=== PATIENT | female | born 1985 | race Caucasian/White ===

== ENCOUNTER 2025-03-16 17:26 | Emergency (ER) | payer OTHER, SELFPAY ==
--- OUTSIDE RECORDS SUMMARY | 2025-03-12 09:16 | XMS_ITS | Encounter Summary ---
Author Organization [facility] tem Address [id number] [address] [place] [address] Care Team Providers Care Supervisor [employer] Name Role Phone Emelia oRd APRN-LINEN MANAGER Primary Care Provide r Reason for Visit * Reason Comments Vomiting Diarrhea Encounter Details Date Type Department Care Team (Late st Contact Info) Description 03/12/2025 9:16 AM EDT - 03/12/2025 11:30 AM EDT Emergency [facility] - Emergency [address] [place] [id number] Marcial Redding MD [address] [place] [address] Cyclical vomiting (Primary Dx) Discharge Disposition: Home Social History Tobacco Use Types Packs/Day Years Used Date Smoking Tobacco: Every Day Cigarettes 0.3 19 Smokeless Tobacco: Never Alcohol Use Standard Drinks/Week Comments Yes 0 (1 standard drink = 0.6 oz pur e alcohol) SOCIAL PHQ-2 Answer Date Recorded Total Score 0 01/20/2023 Childcare Answer Date Recorded Childcare Unknown 01/07/2019 Employment Answer Date Recorded Employment Unknown 01/07/2019 Hunger Screening Answer Date Recorded Within the past 12 months we worried whether our food would run out before we got money to buy more. Never True 03/13/2025 Within the past 12 months th e food we bought just didn't last and we didn't have money to get more. Never True 03/13/2025 Purpose - Life Answer Date Recorded Purpose and direction in life Unknown Comments No Sex and Gender Information Value Date Recorded Sex Assigned at Not on file Legal Sex Female 11:39 AM EDT Gender Identity Not on file Sexual Orientation Not on file documented as of this encounter Last Filed Vital Signs Vital Sign Reading Time Taken Comments Blood Pressure 130/65 03/12/2025 10:45 AM EDT Pulse 43 03/12/2025 10:45 AM EDT Temperature - - Respiratory Rate 19 03/12/2025 10:45 AM EDT Oxygen Saturation 100% 03/12/2025 10:45 AM EDT Inhaled Oxygen Concentration - - Weight 48.1 kg (106 lb) 03/12/2025 9:21 AM EDT Height 144.8 cm (4' 9 ) 03/12/2025 9:21 AM EDT Body Mass Index 22.94 03/12/2025 9:21 AM EDT documented in this encounter Discharge Instructions * Attachments The following attachments cannot be sent through Care Everywhere. * Nausea and vomiting in adults (Latvian) documented in this encounter Medications at Time of Discharge acetaminophen (TYLENOL EXTRA STRENGTH) 500 mg tablet Take 1 tablet (500 mg total) by mouth every 6 (six) hours as needed for pain. 30 tablet 10/16/2023 albuterol (PROVENTIL HFA;VENTOLIN HFA) 90 mcg/actuation inhalerIndications: Asthma, unspecified asthma severity, unspecified whether complicated, unspecified whether persistent INHALE 2 PUFFS EVERY 6 HOURS NEEDED FOR WHEEZING 18 g 11 07/25/2024 diphenhydrAMINE (BENADRYL) 25 mg capsule Take 1 capsule (25 mg total) by mouth every 6 (six) hours as needed for itching for up to 10 doses. 10 capsule 12/07/2022 EPINEPHrine (EPIPEN) 0.3 mg/0.3 mL auto-injector Inject 0.3 mL (0.3 mg total) into the appropriate muscle as needed (Anaphylaxis) for up to 1 dose. 1 each 12/07/2022 famotidine (PEPCID) 20 mg tablet Take 1 tablet (20 mg total) by mouth in the morning and 1 tablet (20 mg total) before bedtime. 20 tablet 01/20/2023 hydrocortisone (ANUSOL-HC) 2.5 % rectal creamIndications:He morrhoids, unspecified hemorrhoid type Insert 1 Application into the rectum in the morning and 1 Application before bedtime. 30 g 1 09/08/2023 ibuprofen (MOTRIN) 600 mg tablet Take 1 tablet (600 mg total) by mouth every 6 (six) hours as needed for pain. 30 tablet 10/16/2023 lidocaine (XYLOCAINE) 2 % jellyIndications:He morrhoids, unspecified hemorrhoid type Apply 1 Application topically as needed for pain. 30 mL 06/01/2023 ondansetron ODT (ZOFRAN ODT) 4 mg disintegrating tablet Dissolve 1 tablet (4 mg total) on tongue every 8 (eight) hours as needed for nausea for up to 20 doses. 20 tablet 07/08/2023 promethazine (PHENERGAN) 25 mg suppository Insert 1 suppository (25 mg total) into the rectum every 6 (six) hours as needed for nausea or vomiting. 12 each 01/20/2023 documented as of this encounter ED Notes * Marcial Redding MD - 03/12/2025 9:24 AM EDT Images from the original note were not included. [facility] - EMERGENCY Pt Name: Bernie Meza Birthdate: 1985 Chief Complaint: Chief Complaint Patient presents with ??? Vomiting ??? Diarrhea History of Present Illness: Patient has a history of cyclical vomiting syndrome. It has been awhile since she has had an episode like this. She states about 730 this morning she became nauseous and then started vomiting intractably. She is also now having diarrhea. No focal abdominal pain. Past Medical History: Past Medical History: Diagnosis Date ??? Anemia ??? Anxiety ??? Asthma ??? Back pain ??? Depression ??? Eczema ??? Endometriosis ??? Hemorrhoids ??? History of obesity ??? Hypertension Patient states she has a history of low blood pressure not high ??? Meningitis ??? Migraine ??? Rectal cancer ([facility]) ??? Sacroiliac joint pain with Pressure ??? Visual impairment Past Surgical History: Past Surgical History: Procedure Laterality Date ??? COLONOSCOPY 2019 [place] ??? COLONOSCOPY W/ BIOPSIES AND POLYPECTOMY x4 ??? DENTAL SURGERY ??? HYSTERECTOMY ??? OVARIAN CYST REMOVAL Family History: Family History Problem Relation Age of Onset ??? Hypertension Mother ??? Osteoporosis Mother ??? Emphysema Father ??? Asthma Father ??? COPD Father ??? Osteoporosis Sister ??? Diabetes Maternal Aunt ??? Cancer Maternal Aunt ??? Colon cancer Maternal Aunt ??? Heart failure Maternal Grandmother ??? Cancer Maternal Grandfather ??? Brain Tumor Maternal Grandfather Social History: Social History Socioeconomic History ??? Marital status: Tobacco Use ??? Smoking status: Every Day Current packs/day: 0.25 Average packs/day: 0.3 packs/day for 19.0 years (4.8 ttl pk-yrs) Types: Cigarettes ??? Smokeless tobacco: Never Vaping Use ??? Vaping status: Some Days ??? Substances: THC Substance and Sexual Activity ??? Alcohol use: Yes Comment: SOCIAL ??? Drug use: Yes Types: Marijuana Comment: daily ??? Sexual activity: Yes Partners: Male Social Drivers of Health Food Insecurity: No Food Insecurity (10/16/2023) Hunger Screening ??? Food Insecurity - Worry: Never True ??? Food Insecurity - Inability: Never True Review of Systems: Review of Systems Physical Exam: ED Triage Vitals Temp Pulse Resp BP SpO2 -- -- -- -- -- Temp src Heart Rate Source Patient Position BP Location FiO2 (%) -- -- -- -- -- There were no vitals filed for this visit. Physical Exam Vitals and nursing note reviewed. Constitutional: Appearance: She is well-developed. HENT: Head: Normocephalic and atraumatic. Eyes: Conjunctiva/sclera: Conjunctivae normal. Pupils: Pupils are equal, round, and reactive to light. Cardiovascular: Rate and Rhythm: Regular rhythm. Tachycardia present. Heart sounds: Normal heart sounds. Pulmonary: Effort: Pulmonary effort is normal. Breath sounds: Normal breath sounds. Abdominal: Palpations: Abdomen is soft. Tenderness: There is no abdominal tenderness. Musculoskeletal: General: Normal range of motion. Cervical back: Normal range of motion and neck supple. Skin: General: Skin is warm and dry. Findings: No rash. Neurological: Mental Status: She is alert and oriented to person, place, and time. Psychiatric: Behavior: Behavior normal. Procedure: Procedures Re-evaluation: Re-Evaluation Medical Decision Making Amount and/or Complexity of Data Reviewed Labs: ordered. Risk Prescription drug management. ED Course: Clinical Impressions as of 03/12/25 1022 Cyclical vomiting . ED Disposition None . Please note that portions of this note were completed with a voice recognition program. Efforts were made to edit the dictations but occasionally words are mis-transcribed. Marcial Redding MD 03/12/25 0925 * Cristiane Garcia RN - 03/12/2025 9:20 AM EDT Pt presents with vomiting since 0600 this am documented in this encounter Plan of Treatment Not on file documented as of this encounter Procedures Procedure Name Priority Date/Time Associated Diagnosis Comments BLUE TOP Routine 03/12/2025 9:36 AM EDT RAINBOW DRAW Routine 03/12/2025 9:36 AM EDT CBC WITH AUTO DIFFERENTIAL STAT 03/12/2025 9:35 AM EDT LIPASE STAT 03/12/2025 9:35 AM EDT ETHANOL STAT 03/12/2025 9:35 AM EDT COMPREHENSIVE METABOLIC PANEL STAT 03/12/2025 9:35 AM EDT documented in this encounter Results * Light Blue Top (03/12/2025 9:36 AM EDT) Extra Tube Auto Resulted 03/12/2025 11:01 AM EDT [facility] Blood Venous blood / Unknown 03/12/2025 9:36 AM EDT 03/12/2025 9:39 AM EDT us Marcial Redding MD LAB BLOOD ORDERABLES Final Resu lt Performing Organization Address City/[facility]/ZIP Co de Phone Number [address] [place] [address], [place] * Lipase (03/12/2025 9:35 AM EDT) LIPASE 28 17 - 40 U/L 03/12/2025 10:04 AM EDT [facility] Blood Venous blood / Unknown 03/12/2025 9:35 AM EDT 03/12/2025 9:39 AM EDT us Marcial Redding MD LAB BLOOD ORDERABLES Final Resu lt Performing Organization Address [facility] Co de Phone Number [address] [place] [address], [place] * Ethanol (03/12/2025 9:35 AM EDT) ETHANOL <0.010 <=0.080 g/dL 03/12/2025 10:06 AM EDT [facility] Comment: This report is intended for use in clinical monitoring or management of patients. Blood Venous blood / Unknown 03/12/2025 9:35 AM EDT 03/12/2025 9:39 AM EDT us Marcial Redding MD LAB BLOOD ORDERABLES Final Resu lt Performing Organization Address [facility] Co de Phone Number [address] [place] [address], [place] * (ABNORMAL) Comprehensive metabolic panel (03/12/2025 9:35 AM EDT) SODIUM 139 134 - 146 mmol/L 03/12/2025 10:06 AM EDT [facility] POTASSIUM 4.0 3.5 - 5.0 mmol/L 03/12/2025 10:06 AM EDT [facility] CHLORIDE 111(H) 98 - 109 mmol/L 03/12/2025 10:06 AM EDT [facility] CARBON DIOXIDE 19(L) 22 - 32 mmol/L 03/12/2025 10:06 AM EDT [facility] ANION GAP 9 5 - 15 mmol/L 03/12/2025 10:06 AM T [facility] BLOOD UREA NITROGEN 24(H) 5 - 23 mg/dL 03/12/2025 10:06 AM EDT [facility] CREATININE 0.72 0.40 - 1.00 mg/dL 03/12/2025 10:06 AM T [facility] Comment:METHOD TRACEABLE TO IDAZ STANDARD GLUCOSE 144(H) 65 - 99 mg/dL 03/12/2025 10:06 AM T [facility] CALCIUM 8.9 8.5 - 10.5 mg/dL 03/12/2025 10:06 AM T [facility] TOTAL PROTEIN 7.1 6.0 - 8.0 g/dL 03/12/2025 10:06 AM T [facility] ALBUMIN 4.2 3.2 - 5.3 g/dL 03/12/2025 10:06 AM T [facility] ALKALINE PHOSPHATASE 51 39 - 130 U/L 03/12/2025 10:06 AM T [facility] AST 20 <=41 U/L 03/12/2025 10:06 AM T [facility] ALT 15 <=31 U/L 03/12/2025 10:06 AM T [facility] BILIRUBIN,TOTAL 0.7 0.3 - 1.2 mg/dL 03/12/2025 10:06 AM [facility] EGFR Non-Race Dependent >90 >=60 ml/min/1.7 3sq.m 03/12/2025 10:06 AM [facility] Comment: eGFR not reported due to non-numeric value for Creatinine. Reported eGFR is based on the CKD-EPI 2020 equation that does not use a race coefficient. Blood Venous blood / Unknown 03/12/2025 9:35 AM EDT 03/12/2025 9:39 AM EDT us Marcial Redding MD LAB BLOOD ORDERABLES Final Resu lt [facility] [address] [place] [address], [place] * (ABNORMAL) CBC auto differential (03/12/2025 9:35 AM EDT) WBC 10.3 4 - 11 x10E9/L 03/12/2025 9:59 AM EDT [facility] RBC Count 4.13 3.8 - 5.2 X10E12/L 03/12/2025 9:59 AM EDT [facility] Hemoglobin 13.5 11.7 - 15.5 g/dL 03/12/2025 9:59 AM EDT [facility] Hematocrit 39.8 35 - 47 % 03/12/2025 9:59 AM EDT [facility] MCV 97 80 - 100 fL 03/12/2025 9:59 AM EDT [facility] MCH 32.7 27 - 34 pg 03/12/2025 9:59 AM EDT [facility] MCHC 33.8 32 - 36 g/dL 03/12/2025 9:59 AM EDT [facility] RDW 13.0 11.5 - 15 % 03/12/2025 9:59 AM EDT [facility] Platelet Count 376 150 - 450 X10E9/L 03/12/2025 9:59 AM EDT [facility] MPV 8.1 7 - 12 fL 03/12/2025 9:59 AM EDT [facility] Neutrophils % 67.8 % 03/12/2025 9:59 AM EDT [facility] Lymphocytes % 22.5 % 03/12/2025 9:59 AM EDT [facility] Monocytes % 7.0 % 03/12/2025 9:59 AM EDT [facility] Eosinophils % 2.1 % 03/12/2025 9:59 AM EDT [facility] Basophils % 0.6 % 03/12/2025 9:59 AM EDT [facility] Neutrophils Absolute (A) 7.0(H) 1.5 - 6.6 10*3/uL 03/12/2025 9:59 AM EDT [facility] Lymphocytes Absolute 2.3 1.0 - 3.5 10*3/uL 03/12/2025 9:59 AM EDT [facility] Monocytes Absolute 0.7 0.0 - 0.9 10*3/uL 03/12/2025 9:59 AM EDT [facility] Eosinophils Absolute 0.2 0.0 - 0.4 10*3/uL 03/12/2025 9:59 AM EDT [facility] Basophils Absolute 0.1 0.0 - 0.2 10*3/uL 03/12/2025 9:59 AM EDT [facility] Differential Type AUTOMATED DIFFERENTIAL 03/12/2025 9:59 AM EDT [facility] Blood Venous blood / Unknown 03/12/2025 9:35 AM EDT 03/12/2025 9:39 AM EDT us Marcial Redding MD LAB BLOOD ORDERABLES Final Resu lt Performing Organization Address City/State/[facility] Co de Phone Number [facility] [address] documented in this encounter Visit Diagnoses Diagnosis Cyclical vomiting- Primary Persistent vomiting documented in this encounter Administered Medications Inactive Administered Medications - up to 3 most recent administrations Medication Order MAR Action Action Date Dose Rate Site famotidine (PF) (PEPCID) injection 20 mg 20 mg, intravenous, Once, On 03/12/25 at 0920, For 1 dose, Dilute to total volume of 5 mL with 0.9% sod chl and administer IVP over 2 minutes. Given 03/12/2025 9:33 AM EDT 20 mg haloperidol lactate (HALDOL) injection 2 mg 2 mg, intravenous, Once, On 03/12/25 at 0935, For 1 dose, IV Haldol requires monitored bed Given 03/12/2025 9:41 AM EDT 2 mg LORazepam (ATIVAN) injection 0.5 mg 0.5 mg, intravenous, Once, On 03/12/25 at 1030, For 1 dose, Look-alike/sound-alike medication - verify indication for use;IV use requires increased monitoring of HR,BP,Respirations and Pulse Oximetry;For IV-dilute with equal volume PF sod chloride Given 03/12/2025 10:33 AM EDT 0.5 mg ondansetron (PF) (ZOFRAN) injection 4 mg 4 mg, intravenous, Once, On 03/12/25 at 0920, For 1 dose, Intravenous administration preferred to be given over 2-5 minutes. Given 03/12/2025 9:32 AM EDT 4 mg sodium chloride 0.9 % bolus 1,000 mL, intravenous, at 984 mL/hr, Administer over 61 Minutes, Once, On 03/12/25 at 0920, For 1 dose New Bag 03/12/2025 9:32 AM EDT 1,000 mL 984 mL/hr sodium chloride 0.9 % bolus 500 mL, intravenous, at 968 mL/hr, Administer over 31 Minutes, Once, On 03/12/25 at 1030, For 1 dose New Bag 03/12/2025 10:38 AM EDT 500 mL 968 mL/hr sodium chloride 0.9 % flush 3 mL 3 mL, intravenous, As needed, line care, before and after each intermittent use, Starting on 03/12/25 at 0916 documented in this encounter Active and Recently Administered Medications Times are shown in EDT. Scheduled Medication Order 03/10/2025 03/11/2025 03/12/2025 famotidine (PF) (PEPCID) injection 20 mg (COMPLETED) 20 mg, intravenous, Once, On 03/12/25 at 0920, For 1 dose, Dilute to total volume of 5 mL with 0.9% sod chl and administer IVP over 2 minutes. 0933 (Given - Provid er: Cristiane Garcia RN) haloperidol lactate (HALDOL) injection 2 mg (COMPLETED) 2 mg, intravenous, Once, On 03/12/25 at 0935, For 1 dose, IV Haldol requires monitored bed 0941 (Given - Provid er: Noble Brewer) LORazepam (ATIVAN) injection 0.5 mg (COMPLETED) 0.5 mg, intravenous, Once, On 03/12/25 at 1030, For 1 dose, Look-alike/sound-alike medication - verify indication for use;IV use requires increased monitoring of HR,BP,Respirations and Pulse Oximetry;For IV-dilute with equal volume PF sod chloride 1033 (Given - Provid er: Noble Brewer) ondansetron (PF) (ZOFRAN) injection 4 mg (COMPLETED) 4 mg, intravenous, Once, On 03/12/25 at 0920, For 1 dose, Intravenous administration preferred to be given over 2-5 minutes. 0932 (Given - Provid er: Cristiane Garcia RN) sodium chloride 0.9 % bolus (COMPLETED) 1,000 mL, intravenous, at 984 mL/hr, Administer over 61 Minutes, Once, On 03/12/25 at 0920, For 1 dose 0932 (New Bag - Prov ider: Cristiane Garcia RN)1036 (Stop Bag - Provider: Noble Brewer) sodium chloride 0.9 % bolus (COMPLETED) 500 mL, intravenous, at 968 mL/hr, Administer over 31 Minutes, Once, On 03/12/25 at 1030, For 1 dose 1038 (New Bag - Prov ider: Noble Brewer)1120 (Stop Bag - Provider: Noble Brewer) PRN Medication Order 03/10/2025 03/11/2025 03/12/2025 sodium chloride 0.9 % flush 3 mL 3 mL, intravenous, As needed, line care, before and after each intermittent use, Starting on 03/12/25 at 0916 documented in this encounter Additional Health Concerns Assessment Noted Time PHQ-9 Depression Total Score: 0 01/21/20 23 7:00 AM EDT documented as of this encounter Care Teams Supervisor [employer] Relationship Specialty Start Date End Date Emelia Rod APRN-LINEN MANAGER [address] [place] [address] PCP - General Family Medicine 10/16/23 documented as of this encounter
--- OUTSIDE RECORDS SUMMARY | 2025-03-13 11:02 | XMS_ITS | Encounter Summary ---
Author Organization [facility] [employer] [facility] tem Address [id number] [address] [place] [address] Care Team Providers Care Bus Person Name Role Phone Emelia Rod APRN-DIRECTOR OF CARDIAC CATH LAB Primary Care Provide r Reason for Visit * Reason Comments Vomiting Pt was here yesterda y for diverticulosis and cannabis hyperemesis Encounter Details Date Type Department Care Team (Late st Contact Info) Description 03/13/2025 11:02 AM EDT - 03/13/2025 1:[address] [facility] - Emergency [address] [place] [id number] Gerard Ca DO [address] [place], [place] [id number] Nausea and vomiting, unspecified vomiting type (Primary Dx) Discharge Disposition: Home Social History [...] Sign Reading Time Taken Comments Blood Pressure 90/44 03/13/2025 1:28 PM EDT Pulse 53 03/13/2025 1:28 PM EDT Temperature 37.2 C (98.9 F) 03/13/2025 11:04 AM EDT Respiratory Rate 18 03/13/2025 1:28 PM EDT Oxygen Saturation 100% 03/13/2025 1:28 PM EDT Inhaled Oxygen Concentration - - Weight 48.1 kg (106 lb) 03/13/2025 11:04 AM EDT Height 144.8 cm (4' 9 ) 03/13/2025 11:04 AM EDT Body Mass Index 22.94 03/13/2025 11:04 AM EDT documented in this encounter Discharge Instructions * Discharge Instructions* Gerard Ca DO - 03/13/2025 1:16 PM EDT You have been evaluated for nausea with vomiting. At this time, your laboratory results and physical exam revealed no findings that would require emergent intervention or admission. You are stable joie discharged home and should follow up with your primary care physician. Please make an appointment to be seen within the next week. If there should be any new or worsening symptoms either follow upwith your primary care physician of if you believe you are having an emergency return to the Emergency Department. These symptoms include: worsening shortness of breath, lightheadedness, dizziness, chest pain, uncontrollable nausea or vomiting, inability to tolerate oral feeding, loss of consciousness. * Attachments The following attachments cannot be sent through Care Everywhere. * Nausea and Vomiting? Adult ED (Dutch) documented in this encounter Medications at Time [...] as of this encounter ED Notes * Gerard Ca DO - 03/13/2025 11:07 AM EDT Images from the original note were not included. [facility] - EMERGENCY Pt Name: Bernie Meza Birthdate: 1985 Chief Complaint: Chief Complaint Patient presents with Vomiting Pt was here yesterday for diverticulosis and cannabis hyperemesis History of Present Illness: Initial evaluation preformed by Dr. Ca at 11:05 AM 39 y.o. female presents to ED via EMS transport with c/o Vomiting. Patient reports she has cyclic vomiting syndrome and diverticulitis. She was seen in the ED yesterday for similar symptoms. She was discharged home and was feeling better this morning, all symptoms began after drinking a cup of coffee. She reports spending [address] [facility] last year for similar reasons. Patient smoker marijuana and reports her cyclic vomiting began before beginning marijuana. History provided by: Patient lang interpreter used: No Past Medical History: Past Medical History: Diagnosis Date Anemia Anxiety Asthma Back pain Depression Eczema Endometriosis Hemorrhoids History of obesity Hypertension Patient states she has a history of low blood pressure not high Meningitis Migraine Rectal cancer ([facility]) Sacroiliac joint pain with Pressure Visual impairment Past Surgical History: Past Surgical History: Procedure Laterality Date COLONOSCOPY 2019 [place] COLONOSCOPY W/ BIOPSIES AND POLYPECTOMY x4 DENTAL SURGERY HYSTERECTOMY OVARIAN CYST REMOVAL Family History: Family History Problem Relation Age of Onset Hypertension Mother Osteoporosis Mother Emphysema Father Asthma Father COPD Father Osteoporosis Sister Diabetes Maternal Aunt Cancer Maternal Aunt Colon cancer Maternal Aunt Heart failure Maternal Grandmother Cancer Maternal Grandfather Brain Tumor Maternal Grandfather Social History: Social History Socioeconomic History Marital status: Tobacco Use Smoking status: Every Day Current packs/day: 0.25 Average packs/day: 0.3 packs/day for 19.0 years (4.8 ttl pk-yrs) Types: Cigarettes Smokeless tobacco: Never Vaping Use Vaping status: Some Days Substances: THC Substance and Sexual Activity Alcohol use: Yes Comment: SOCIAL Drug use: Yes Types: Marijuana Comment: daily Sexual activity: Yes Partners: Male Social Drivers of Health Food Insecurity: No Food Insecurity (03/13/2025) Hunger Screening Food Insecurity - Worry: Never True Food Insecurity - Inability: Never True Review of Systems: Review of Systems Physical Exam: ED Triage Vitals [03/13/25 1104] Temp Heart Rate Resp BP SpO2 37.2 ??C (98.9 ??F) 64 25 (!) 116/93 98 % Temp Source Heart Rate Source Patient Position BP Location FiO2 (%) Oral Pulse Ox High-fowlers Left arm -- Vitals: 03/13/25 1104 BP: (!) 116/93 Temp: 37.2 ??C (98.9 ??F) TempSrc: Oral Pulse: 64 Resp: 25 SpO2: 98% MAP (mmHg): 102 Height: 144.8 cm (4' 9 ) Weight: 48.1 kg (106 lb) Physical Exam Vitals and nursing note reviewed. Constitutional: General: She is in acute distress. Appearance: Normal appearance. She is not ill-appearing. HENT: Head: Normocephalic and atraumatic. Nose: Nose normal. Mouth/Throat: Mouth: Mucous membranes are moist. Pharynx: Oropharynx is clear. Eyes: Extraocular Movements: Extraocular movements intact. Conjunctiva/sclera: Conjunctivae normal. Cardiovascular: Rate and Rhythm: Normal rate and regular rhythm. Pulmonary: Effort: Pulmonary effort is normal. Breath sounds: Normal breath sounds. Abdominal: Palpations: Abdomen is soft. Tenderness: There is no abdominal tenderness. There is no guarding or rebound. Musculoskeletal: General: No tenderness. Normal range of motion. Cervical back: Normal range of motion and neck supple. Skin: General: Skin is warm and dry. Capillary Refill: Capillary refill takes less than 2 seconds. Neurological: Mental Status: She is alert and oriented to person, place, and time. Mental status is at baseline. Psychiatric: Mood and Affect: Mood normal. Thought Content: Thought content normal. Procedure: Procedures Re-evaluation: Ayla Gold (scribe), documented on behalf and in the presence of Dr. Alfredito Ca. 12:05 PM Patient re-evaluated, improvement in vomiting but still nauseated. Medical Decision Making 39-year-old female presenting for evaluation of nausea and vomiting. On physical examination she appears to be in [id number] distress. She is stating there is abdominal tenderness however on myexam there is no tenderness to palpation. No flank pain or CVA tenderness. Exam otherwise as noted above. She is provided with IV fluids, Haldol, Zofran, and we obtained labs. EKG and labs showed no s ignificant abnormalities. On re-evaluation she had improvement in all symptoms and was requesting to be discharged home. Advised close outpatient follow-up and given strict return precautions. She acknowledged an understanding of all information provided and agreed with this plan of care. Amount and/or Complexity of Data Reviewed Independent Historian: spouse Details: Labs: ordered. Decision-making details documented in ED Course. ECG/medicine tests: ordered and independent interpretation performed. Decision- making details documented in ED Course. Details: ECG notable for sinus bradycardia. There is no evidence of ST elevation, depression, or T-wave inversion. This is an unremarkable EKG. Risk Prescription drug management. ED Course: ED Course as of 03/13/25 1317 ThuMar 13, 2025 1121 ECG notable for sinus bradycardia. There is no evidence of ST elevation, depression, or T-waveinversion. This is an unremarkable EKG. [JARON] 1157 Labs notable for labs revealed no significant abnormalities with the exception of leukocytosisof 13.7. Mild hypokalemia of 3.3. [JARON] ED Course User Index [JARON] Gerard Ca DO Clinical Impressions as of 03/13/25 1317 Nausea and vomiting, unspecified vomiting type . ED Disposition ED Disposition Discharge Date/Time ThuMar 13, 2025 1:16 PM Comment At the time of discharge, the plan has been discussed with the patient regarding the diagnosis and prognosis. All questions have been answered. Verbal discharge instructions were discussed with the patient. The patient has been advised to follow up w ith their Primary Care Provider within 1 week. The patient was also instructed to return to the ED if their symptoms change, worsen, new symptoms arise or if they have any additional concerns. . Please note that portions of this note were completed with a voice recognition program. Efforts were made to edit the dictations but occasionally words are mis-transcribed. Ayla Nash 03/13/25 1109 Ayla Nash 03/13/25 1217 Ayla Nash 03/13/25 1233 Gerard Ca DO 03/13/25 1317 documented in this encounter Plan of Treatment Not on file documented as of this encounter Procedures Procedure Name Priority Date/Time Associated Diagnosis Comments EXTRA TUBES BLUE TOP Routine 03/13/2025 11:23 AM EDT EXTRA TUBES Routine 03/13/2025 11:23 AM EDT CBC WITH AUTO DIFFERENTIAL STAT 03/13/2025 11:23 AM EDT LIPASE STAT 03/13/2025 11:23 AM EDT COMPREHENSIVE METABOLIC PANEL STAT 03/13/2025 11:23 AM EDT ECG 12-LEAD STAT 03/13/2025 11:16 AM EDT documented in this encounter Results * Light Blue Top (03/13/2025 11:23 AM EDT) Extra Tube Auto Resulted 03/13/2025 1:01 PM EDT [facility] Blood Venous blood / Unknown 03/13/2025 11:23 AM EDT 03/13/2025 11:28 AM EDT us Gerard A Lanny DO LAB BLOOD ORDERABLES Final Resul t Performing Organization Address City/[facility] Co de Phone Number [address] [place] [address], [place] * Lipase (03/13/2025 11:23 AM EDT) LIPASE 26 17 - 40 U/L 03/13/2025 11:42 AM EDT [facility] Blood Venous blood / Unknown Venipuncture / Unknown 03/13/2025 11:23 AM EDT 03/13/2025 11:26 AM EDT us Gerard A Lanny DO LAB BLOOD ORDERABLES Final Resul t Performing Organization Address City/[facility]/ZIP Co de Phone Number [address] [place] [address], [place] * (ABNORMAL) Comprehensive metabolic panel (03/13/2025 11:23 AM EDT) SODIUM 139 134 - 146 mmol/L 03/13/2025 11:45 AM EDT [facility] POTASSIUM 3.3(L) 3.5 - 5.0 mmol/L 03/13/2025 11:45 AM EDT [facility] CHLORIDE 109 98 - 109 mmol/L 03/13/2025 11:45 AM EDT [facility] CARBON DIOXIDE 19(L) 22 - 32 mmol/L 03/13/2025 11:45 AM EDT [facility] ANION GAP 11 5 - 15 mmol/L 03/13/2025 11:45 AM EDT [facility] BLOOD UREA NITROGEN 10 5 - 23 mg/dL 03/13/2025 11:45 AM EDT [facility] CREATININE 0.68 0.40 - 1.00 mg/dL 03/13/2025 11:45 AM EDT [facility] Comment:METHOD TRACEABLE TO IDMS STANDARD GLUCOSE 153(H) 65 - 99 mg/dL 03/13/2025 11:45 AM EDT [facility] CALCIUM 8.9 8.5 - 10.5 mg/dL 03/13/2025 11:45 AM EDT [facility] TOTAL PROTEIN 7.3 6.0 - 8.0 g/dL 03/13/2025 11:45 AM EDT [facility] ALBUMIN 4.4 3.2 - 5.3 g/dL 03/13/2025 11:45 AM EDT [facility] ALKALINE PHOSPHATASE 58 39 - 130 U/L 03/13/2025 11:45 AM EDT [facility] AST 59(H) <=41 U/L 03/13/2025 11:45 AM EDT [facility] ALT 64(H) <=31 U/L 03/13/2025 11:45 AM EDT [facility] BILIRUBIN,TOTAL 0.4 0.3 - 1.2 mg/dL 03/13/2025 11:45 AM EDT [facility] EGFR Non-Race Dependent >90 >=60 ml/min/1.7 3sq.m 03/13/2025 11:45 AM EDT [facility] Comment: eGFR not reported due to non-numeric value for Creatinine. Reported eGFR is based on the CKD-EPI 2020 equation that does not use a race coefficient. Blood Venous blood / Unknown Venipuncture / Unknown 03/13/2025 11:23 AM EDT 03/13/2025 11:26 AM EDT us Gerard Ca DO LAB BLOOD ORDERABLES Final Resul t [facility] [address] [place] [address], [place] * (ABNORMAL) CBC auto differential (03/13/2025 11:23 AM EDT) WBC 13.7(H) 4 - 11 x10E9/L 03/13/2025 11:33 AM EDT [facility] RBC Count 3.98 3.8 - 5.2 X10E12/L 03/13/2025 11:33 AM EDT [facility] Hemoglobin 12.9 11.7 - 15.5 g/dL 03/13/2025 11:33 AM EDT [facility] Hematocrit 38.2 35 - 47 % 03/13/2025 11:33 AM EDT [facility] MCV 96 80 - 100 fL 03/13/2025 11:33 AM EDT [facility] MCH 32.5 27 - 34 pg 03/13/2025 11:33 AM EDT [facility] MCHC 33.8 32 - 36 g/dL 03/13/2025 11:33 AM EDT [facility] RDW 13.0 11.5 - 15 % 03/13/2025 11:33 AM EDT [facility] Platelet Count 322 150 - 450 X10E9/L 03/13/2025 11:33 AM EDT [facility] MPV 7.7 7 - 12 fL 03/13/2025 11:33 AM EDT [facility] Neutrophils % 79.1 % 03/13/2025 11:33 AM EDT [facility] Lymphocytes % 12.6 % 03/13/2025 11:33 AM EDT [facility] Monocytes % 7.9 % 03/13/2025 11:33 AM EDT [facility] Eosinophils % 0.1 % 03/13/2025 11:33 AM EDT [facility] Basophils % 0.3 % 03/13/2025 11:33 AM EDT [facility] Neutrophils Absolute (A) 10.8(H) 1.5 - 6.6 10*3/uL 03/13/2025 11:33 AM EDT [facility] Lymphocytes Absolute 1.7 1.0 - 3.5 10*3/uL 03/13/2025 11:33 AM EDT [facility] Monocytes Absolute 1.1(H) 0.0 - 0.9 10*3/uL 03/13/2025 11:33 AM EDT [facility] Eosinophils Absolute 0.0 0.0 - 0.4 10*3/uL 03/13/2025 11:33 AM EDT [facility] Basophils Absolute 0.0 0.0 - 0.2 10*3/uL 03/13/2025 11:33 AM EDT [facility] Differential Type AUTOMATED DIFFERENTIAL 03/13/2025 11:33 AM EDT [facility] Blood Venous blood / Unknown Venipuncture / Unknown 03/13/2025 11:23 AM EDT 03/13/2025 11:26 AM EDT us Gerard Ca DO LAB BLOOD ORDERABLES Final Resul t [facility] [address] [place] [address], [place] * ECG 12 lead (03/13/2025 11:16 AM EDT) 03/13/2025 11:1 6 AM EDT Narrative [facility] - 03/13/2025 11:57 AM EDT us Gerard A Lanny DO ECG ORDERABLES Final Result LACIE documented in this encounter Visit Diagnoses Diagnosis Nausea and vomiting, unspecified vomiting type- Primary documented in this encounter Administered Medications Inactive Administered Medications - up to 3 most recent administrations Medication Order MAR Action Action Date Dose Rate Site famotidine (PF) (PEPCID) injection 20 mg 20 mg, intravenous, Once, On Thu03/13/25 at 1115, For 1 dose, Dilute to total volume of 5 mL with 0.9% sod chl and administer IVP over 2 minutes. Given 03/13/2025 11:29 AM EDT 20 mg haloperidol lactate (HALDOL) injection 5 mg 5 mg, intravenous, Once, On Thu03/13/25 at 1115, For 1 dose, IV Haldol requires monitored bed Given 03/13/2025 11:30 AM EDT 5 mg ondansetron (PF) (ZOFRAN) injection 4 mg 4 mg, intravenous, Once, On Thu03/13/25 at 1210, For 1 dose, Intravenous administration preferred to be given over 2-5 minutes. Given 03/13/2025 12:45 PM EDT 4 mg sodium chloride 0.9 % bolus 1,000 mL, intravenous, at 1,935.5 mL/hr, Administer over 31 Minutes, Once, On Thu03/13/25 at 1115, For 1 dose New Bag 03/13/2025 11:27 AM EDT 1,000 mL 1935.5 mL/hr documented in this encounter Active and Recently Administered Medications Times are shown in EDT. Scheduled Medication Order 03/11/2025 03/12/2025 03/13/2025 famotidine (PF) (PEPCID) injection 20 mg (COMPLETED) 20 mg, intravenous, Once, On Thu03/13/25 at 1115, For 1 dose, Dilute to total volume of 5 mL with 0.9% sod chl and administer IVP over 2 minutes. 1129 (Given - Provid er: Noble Brewer) haloperidol lactate (HALDOL) injection 5 mg (COMPLETED) 5 mg, intravenous, Once, On Thu03/13/25 at 1115, For 1 dose, IV Haldol requires monitored bed 1130 (Given - Provid er: Noble Brewer) ondansetron (PF) (ZOFRAN) injection 4 mg (COMPLETED) 4 mg, intravenous, Once, On Thu03/13/25 at 1210, For 1 dose, Intravenous administration preferred to be given over 2-5 minutes. 1245 (Given - Provid er: Noble Brewer) sodium chloride 0.9 % bolus (COMPLETED) 1,000 mL, intravenous, at 1,935.5 mL/hr, Administer over 31 Minutes, Once, On Thu03/13/25 at 1115, For 1 dose 1127 (New Bag - Prov ider: Noble Brewer)1256 (Stop Bag - Provider: Noble Brewer) documented in this encounter Additional Health Concerns Assessment Noted Time PHQ-9 Depression Total Score: 0 01/21/20 23 7:00 AM EDT documented as of this encounter Care Teams Bus Person Relationship Specialty Start Date End Date Emelia Rod APRN-CHRISTINA [address] [place] [address] PCP - General Family Medicine 10/16/23 documented as of this encounter
--- OUTSIDE RECORDS SUMMARY | 2025-03-16 17:39 | XMS_ITS | Encounter Summary ---
Author Organization [facility] [employer] tem Address [id number] [address] [place] [address] Care Team Providers Care Supervisor Lamp Shades Name Role Phone Emelia Rod COOLER SERVICER-RADIOLOGY RESIDENT Primary Care Provide r Reason for Visit * Reason Onset Date Comments Med Refill 01/21/2023 Encounter Details Date Type Department Care Team (Late st Contact Info) Description 01/21/2023 Refill [facility] [address] [place] [phone] Susana Solomon LPN Social History Tobacco Use Types Packs/Day Years Used Date Smoking Tobacco: Every Day Cigarettes 0.3 19 Smokeless Tobacco: Never Alcohol Use Standard Drinks/Week Comments Yes 0 (1 standard drink = 0.6 oz pur e alcohol) SOCIAL PHQ-2 Answer Date Recorded Total Score 0 01/20/2023 Childcare Answer Date Recorded Childcare Unknown 01/07/2019 Employment Answer Date Recorded Employment Unknown 01/07/2019 Purpose - Life Answer Date Recorded Purpose and direction in life Unknown Comments No Sex and Gender Information Value Date Recorded Sex Assigned at Not on file Legal Sex Female 11:39 AM EDT Gender Identity Not on file Sexual Orientation Not on file documented as of this encounter Plan of Treatment Not on file documented as of this encounter Visit Diagnoses Not on filedocumented in this encounter Additional Health Concerns Infection Onset Date Last Indicated Resolved Time COVID-19 Rule-Out 06/12/2023 06/12/2023 06/12/2023 7:27 PM EDT Assessment Noted Time PHQ-9 Depression Total Score: 0 01/21/20 23 7:00 AM EDT documented as of this encounter Care Teams Supervisor Lamp Shades Relationship Specialty Start Date End Date Emelia Rod APRN-CHRISTINA [address] [place] [address] PCP - General Family Medicine 10/16/23 documented as of this encounter
--- OUTSIDE RECORDS SUMMARY | 2025-03-16 17:39 | XMS_ITS | Encounter Summary ---
Author Organization [facility] tem Address [id number] [address] [place] [address] Care Team Providers Care Transformation Analyst Name Role Phone Emelia Rod KNIFE SETTER GRINDER MACHINE-AUTOMATION ENGINEERING TECHNICIAN Primary Care Provide r Encounter Details Date Type Department Care Team (Latest Contact Info) Description 03/12/2025 Travel Social History Tobacco Use Types Packs/Day Years [...] filedocumented in this encounter Additional Health Concerns Assessment Noted Time PHQ-9 Depression Total Score: 0 01/21/20 23 7:00 AM EDT documented as of this encounter Care Teams Transformation Analyst Relationship Specialty Start Date End Date Emelia Rod APRN-CHRISTINA [address] [place] [address] PCP - General Family Medicine 10/16/23 documented as of this encounter
--- OUTSIDE RECORDS SUMMARY | 2025-03-16 17:39 | XMS_ITS | Encounter Summary ---
Author Organization [facility] [employer] [facility] tem Address [id number] [address] [place] [address] Care Team Providers Care Electrical Transmission Engineer Name Role Phone [email or web address] christianson CONSTRUCTION TECHNOLOGY INSTRUCTOR-ENTRY LEVEL FINANCE Primary Care Provide r Encounter Details Date Type Department Care Team (Late st Contact Info) Description 02/04/2021 [facility]phone [facility] [address] [place] [phone] Bipin Cox CNA Social History Tobacco Use Types Packs/Day Years Used Date Smoking Tobacco: Every Day Cigarettes 0.3 19 Smokeless Tobacco: Never Alcohol Use Standard Drinks/Week Comments Yes 0 (1 standard drink = 0.6 oz pur e alcohol) SOCIAL PHQ-2 Answer Date Recorded Total Score 0 11/28/2020 Childcare Answer Date Recorded Childcare Unknown 01/07/2019 Employment Answer Date Recorded Employment Unknown 01/07/2019 Purpose - Life Answer Date Recorded Purpose and direction in life Unknown Comments No Sex and Gender Information Value Date Recorded Sex Assigned at Not on file Legal Sex Female 11:39 AM EDT Gender Identity Not on file Sexual Orientation Not on file documented as of this encounter Miscellaneous Notes * Telephone Encounter - Bipin Cox CMA - 02/04/2021 11:12 AM EDT Patient calling stating that yesterday she had a varicose vein pop in her right leg and now has a big bruise and bump. I scheduled her an appointment but would you like her to do anything else first before coming in? * Telephone Encounter - HARVEY Bonilla - 02/04/2021 11:12 AM EDT Warm compress is all she can do it will resolve in time * Telephone Encounter - Bipin Cox CMA - 02/04/2021 11:12 AM EDT Patient notified and cancelled appointment documented in this encounter Plan of Treatment Not on file documented as of this encounter Visit Diagnoses Not on filedocumented in this encounter Additional Health Concerns Infection Onset Date Last Indicated Resolved Time COVID-19 Rule-Out 06/12/2023 06/12/2023 06/12/2023 7:27 PM EDT Assessment Noted Time PHQ-9 Depression Total Score: 0 11/29/19 21 1:00 PM EDT documented as of this encounter Care Teams Electrical Transmission Engineer Relationship Specialty Start Date End Date Emelia Rod APRN-CNP [address] [place] [address] PCP - General Family Medicine 10/16/23 documented as of this encounter
--- OUTSIDE RECORDS SUMMARY | 2025-03-16 17:39 | XMS_ITS | Encounter Summary ---
Author Organization [facility] [employer] [facility] tem Address [id number] [address] [place] [address] Care Team Providers Care Monorail Car Operator Name Role Phone Emelia Rod REAL ESTATE INTERN-ACCOUNTING SPECIALIST Primary Care Provide r Encounter Details Date Type Department Care Team (Late st Contact Info) Description 11/23/2020 Telephone [facility] [address] [place] [phone] Emelia Rod APRN-ACCOUNTING SPECIALIST [address] [place], [place] [phone] Social History Tobacco Use Types Packs/Day Years Used Date Smoking Tobacco: Every Day Cigarettes Smokeless Tobacco: Never Alcohol Use Standard Drinks/Week Comments Yes 0 (1 standard drink = 0.6 oz pur e alcohol) SOCIAL PHQ-2 Answer Date Recorded Total Score 0 10/23/2020 Childcare Answer Date Recorded Childcare Unknown 01/07/2019 Employment Answer Date Recorded Employment Unknown 01/07/2019 Purpose - Life Answer Date Recorded Purpose and direction in life Unknown Comments No Sex and Gender Information Value Date Recorded Sex Assigned at Not on file Legal Sex Female 11:39 AM EDT Gender Identity Not on file Sexual Orientation Not on file COVID-19 Exposure Response Date Recorded In the last month, have you been in contact with someone who was confirmed or suspected to have Coronavirus / COVID-19? No / Unsure 10/25/2020 10:01 AM EDT documented as of this encounter Miscellaneous Notes * Telephone Encounter - Ratna Szymanowski - 11/23/2020 3:03 PM EDT ELIAZARI: Blanca from [facility] wanted to let you know that they are going to be changing course with this patient and adding a pelvic health component to her treatment. There is no additional order needed. documented in this encounter Plan of Treatment Not on file documented as of this encounter Visit Diagnoses Not on filedocumented in this encounter Additional Health Concerns Infection Onset Date Last Indicated Resolved Time COVID-19 Rule-Out 06/12/2023 06/12/2023 06/12/2023 7:27 PM EDT Assessment Noted Time PHQ-9 Depression Total Score: 0 10/24/19 21 2:00 PM EDT documented as of this encounter Care Teams Monorail Car Operator Relationship Specialty Start Date End Date Emelia Rod, KELLIE-ACCOUNTING SPECIALIST [address] [place] [address] PCP - General Family Medicine 10/16/23 documented as of this encounter
--- OUTSIDE RECORDS SUMMARY | 2025-03-16 17:39 | XMS_ITS | Encounter Summary ---
Author Organization [facility] tem Address [id number] [address] [place] [address] Care Team Providers Care Automotive Shop Foreman Name Role Phone Emelia Rod ETIOLOGIST-ARTIST MANAGER Primary Care Provide r Encounter Details Date Type Department Care Team (Late st Contact Info) Description 01/03/2022 Orders Only [facility] [address] [place] [phone] External, Scanning Provider Social History Tobacco Use Types Packs/Day Years Used Date Smoking Tobacco: Every Day Cigarettes 0.3 19 Smokeless Tobacco: Never Alcohol Use Standard Drinks/Week Comments Yes 0 (1 standard drink = 0.6 oz pur e alcohol) SOCIAL PHQ-2 Answer Date Recorded Total Score 0 03/18/2021 Childcare Answer Date Recorded Childcare Unknown 01/07/2019 [...] Procedure Name Priority Date/Time Associated Diagnosis Comments MR LOWER LEG RT WO CONT Routine 01/02/2022 documented in this encounter Results * MR lower leg right without contrast (01/02/2022) Anatomical Region Laterality Modality MSK, Lower Leg, Lower Extremities, MSK Cover[place] Ri ght Magnetic Resonance 01/02/2022 us Scanning Provider External IMG MRI ORDERABLES Fi nal Result documented in this encounter Visit Diagnoses Not on filedocumented in this encounter Additional Health Concerns Infection Onset Date Last Indicated Resolved Time COVID-19 Rule-Out 06/12/2023 06/12/2023 06/12/2023 7:27 PM EDT Assessment Noted Time PHQ-9 Depression Total Score: 0 03/18/20 21 3:00 PM EDT documented as of this encounter Care Teams Automotive Shop Foreman Relationship Specialty Start Date End Date Emelia Rod APRN-ARTIST MANAGER [address] [place] [address] PCP - General Family Medicine 10/16/23 documented as of this encounter
--- OUTSIDE RECORDS SUMMARY | 2025-03-16 17:39 | XMS_ITS | Encounter Summary ---
Author Organization [facility] tem Address [id number] [address] [place] [address] Care Team Providers Care Special Needs Teacher Name Role Phone Emelia Rod TOBACCO FARMWORKER-BRANCH SALES MANAGER Primary Care Provide r Encounter Details Date Type Department Care Team (Late st Contact Info) Description 11/30/2020 Orders Only [facility] [address] [place] [phone] Emelia Rod APRN-BRANCH SALES MANAGER [address] [place], [place] [phone] Social History Tobacco Use Types Packs/Day Years [...] have Coronavirus / COVID-19? No / Unsure 11/28/2020 1:08 PM EDT documented as of this encounter Plan of Treatment Not on file documented as of this encounter Visit Diagnoses Not on filedocumented in this encounter Additional Health Concerns Infection Onset Date Last Indicated Resolved Time COVID-19 Rule-Out 06/12/2023 06/12/2023 06/12/2023 7:27 PM EDT Assessment Noted Time PHQ-9 Depression Total Score: 0 11/29/19 21 1:00 PM EDT documented as of this encounter Care Teams Special Needs Teacher Relationship Specialty Start Date End Date Emelia Rod APRN-CHRISTINA [address] [place] [address] PCP - General Family Medicine 10/16/23 documented as of this encounter
--- OUTSIDE RECORDS SUMMARY | 2025-03-16 17:39 | XMS_ITS | Clinical Summary ---
Author Organization [facility] Address [address] [place] [address] Care Team Providers Care Freight Brakeman Name Role Phone Shabbir Michelle MD Unavailable Social History Tobacco Use Types Packs/Day Years Used Date Smoking Tobacco: Never Assessed Comments Unknown Sex and Gender Information Value Date Recorded Sex Assigned at Not on file Legal Sex Female 11:08 PM EDT Gender Identity Not on file Sexual Orientation Not on file Last Filed Vital Signs Vital Sign Reading Time Taken Comments Blood Pressure - - Pulse - - Temperature - - Respiratory Rate - - Oxygen Saturation - - Inhaled Oxygen Concentration - - Weight 50.8 kg (112 lb) 08/08/2020 12:00 PM EST Height 144.8 cm (4' 9 ) 08/08/2020 12:00 PM EST Body Mass Index 24.24 08/08/2020 12:00 PM EST Plan of Treatment Health Maintenance Due Date Last Done Comments Pap Smear 2004 Cervical Cancer Screening 2013 HPV/Cotest 2013 Mammogram 2023 Influenza Vaccine (#1) 2025 Care Teams Freight Brakeman Relationship Specialty Start Date End Date Shabbir Michelle MD [address] [facility] [address] [place] [address] PCP - [facility] PEDIATRIC PHYSIATRIST 11/09/23
--- OUTSIDE RECORDS SUMMARY | 2025-03-16 17:39 | XMS_ITS | Encounter Summary ---
Author Organization [facility] [employer] tem Address [id number] [address] [place] [address] Care Team Providers Care Lawn Service Manager Name Role Phone Emelia Rod PREPARATION DEPARTMENT SUPERVISOR-TABLE AND DESK FINISHER Primary Care Provide r Reason for Visit * Reason Comments Med Refill Encounter Details Date Type Department Care Team (Late st Contact Info) Description 07/23/2022 Refill [facility] [address] [place] [phone] Emelia Rod APRN-CNP [address] [place], [place] [phone] Social History Tobacco Use Types Packs/Day Years [...] have Coronavirus / COVID-19? No / Unsure 07/09/2022 2:13 PM EST documented as of this encounter Plan of Treatment Not on file documented as of this encounter Visit Diagnoses Not on filedocumented in this encounter Additional Health Concerns Infection Onset Date Last Indicated Resolved Time COVID-19 Rule-Out 06/12/2023 06/12/2023 06/12/2023 7:27 PM EDT Assessment Noted Time PHQ-9 Depression Total Score: 0 03/18/20 3:00 PM EDT documented as of this encounter Care Teams Lawn Service Manager Relationship Specialty Start Date End Date Emelia Rod APRN-TABLE AND DESK FINISHER [address] [place] [address] PCP - General Family Medicine 10/16/23 documented as of this encounter
--- OUTSIDE RECORDS SUMMARY | 2025-03-16 17:39 | XMS_ITS | Clinical Summary ---
Author Organization [facility] Address [address] [place] [id number] Care Team Providers Care Chief Medical Technologist Name Role Phone Emelia Rod CNP Primary Care Provider [phone] Kel Wood DO, David L Unavailable [phone] Chaz Wright Unavailable Allergies Active Allergy Reactions Criticality Noted Date Comments Amoxicillin-Pot Clavulanate Swelling 03/05/20 23 Swelling of inside of mouth. Sulfamethoxazole-Trimethoprim Rash 2018 Sulfamethoxazole Rash 03/10/2014 Medications albuterol HFA (PROVENTIL HFA, VENTOLIN HFA) 90 mcg/actuation inhaler 0 Active dicyclomine (BENTYL) 20 mg tablet Take 20 mg by mouth three times daily. 0 Active Chlorhexidine Gluconate (PERIDEX) 0.12 % solution Take 15 mL by mouth twice daily. Active megestrol (MEGACE) 400 mg/10 mL (40 mg/mL) suspension Take 200 mg by mouth once daily. Active polyethylene glycol 3350 (MIRALAX, GLYCOLAX) 17 gram/dose powder Use as directed for Miralax / Gatorade Bowel Prep Kit 238 g 3 Active Gatorade Sports Drink Use as directed for Miralax / Gatorade Bowel Prep Kit 3 Active Bisacodyl (DULCOLAX) 5 mg tab Use as directed for Miralax / Gatorade Bowel Prep Kit 4 tablet 3 Active ondansetron orally disintegrating (ZOFRAN ODT) 4 mg disintegrating tablet Take 1 tablet by mouth every 8 hours as needed for nausea/vomit ing. 30 tablet 1 3 Active Active Problems Problem Noted Date Diagnosed Date Syncope Asthma Migraines Family History Medical History Relation Comments Emphysema Father part of lung rem neyda Hypertension Mother Osteoporosis Mother GI Sister 2 Osteoporosis Sister 3 Relation Status Comments Father Alive Mother Alive Sister 1 Alive Sister 2 Sister 3 Social History Tobacco Use Types Packs/Day Years Used Date Smoking Tobacco: Every Day Cigarettes Started: 2003 Smokeless Tobacco: Never Tobacco Cessation:Ready to Q uit: Not Asked; Counseling Given: Not Answered Comments:1 pack per week Alcohol Use Standard Drinks/Week Comments Yes 0 (1 standard drink = 0.6 oz pur e alcohol) 1 beer per week AUDIT-C Answer Date Recorded Q1: How often do you have a drink containing alc ohol? Monthly or less 10/10/2019 Q2: How many drinks containi ng alcohol do you have on a typical day when you are drinking? 1 or 2 10/10/2019 Q3: How often do you have si x or more drinks on one occasion? Never 10/10/2019 Area Deprivation Index Answer Date Zurdo rded National Score (1-100), lower number is lower ri sk 87 03/05/2023 State Score (1-10), lower number is lower risk 8 03/05/2023 Data from: https://www.neighborhoodatlas.medicine.[facility].edu/. Last address used for calculation [address] 03/05/2023 Comments No Sex and Gender Information Value Date Recorded Sex Assigned at Not on file Legal Sex Female 3:30 PM EDT Gender Identity Not on file Sexual Orientation Not on file Occupation Industry Job Start Date Job End Date Not employed Not on file Not on file Not on file Last Filed Vital Signs Vital Sign Reading Time Taken Comments Blood Pressure 119/65 03/05/2023 3:20 PM EDT Pulse 59 03/05/2023 3:20 PM EDT Temperature 37.3 C (99.2 F) 10/10/2019 10:58 AM EST Respiratory Rate 16 03/05/2023 3:20 PM EDT Oxygen Saturation 100% 03/05/2023 3:20 PM EDT Inhaled Oxygen Concentration - - Weight 52.2 kg (115 lb) 03/05/2023 3:20 PM EDT Height 144.8 cm (4' 9 ) 03/05/2023 3:20 PM EDT Body Mass Index 24.89 03/05/2023 3:20 PM EDT Plan of Treatment Health Maintenance Due Date Last Done Comments Annual PCP Team Chronic Disease Visit 2001 Anxiety Screening 2001 Depression Screening 2001 HIV Screening 2001 Hepatitis C Screening 2001 Hepatitis B Vaccine (1 of 3 - 19+ 3-dose series) 07/15 Pneumococcal Vaccine (1 of 2 - PCV) 2002 Cervical Cancer Screening 2004 Mammogram Screening 2023 DTaP,Tdap,Td Vaccine (2 - Td or Tdap) 06/01/2024 Influenza Vaccine (#1) 2025 Insurance [place] [employer] Care Teams Chief Medical Technologist Relationship Specialty Start Date End Date Emelia Rod CNP PCP - General Family Medicine 05/16/19 Kenji Begum Jr., [address] [address] Gastroenterology 05/16/19 Chaz Wright [address] [address] Obstetrics 02/17/19
--- OUTSIDE RECORDS SUMMARY | 2025-03-16 17:39 | XMS_ITS | Encounter Summary ---
Author Organization [facility] tem Address [id number] [address] [place] [address] Care Team Providers Care Graduate Teaching Associate Name Role Phone Emelia Rod SEQUENCING MACHINE OPERATOR-GOLF RANGE ATTENDANT Primary Care Provide r Reason for Visit * Reason Comments Med Refill Encounter Details Date Type Department Care Team (Late st Contact Info) Description 02/03/2019 Refill [facility] [address] [place] [phone] Emelia Rod APRN-CNP [address] [place], [place] [phone] Social History Tobacco Use Types Packs/Day Years Used Date Smoking Tobacco: Some Days Smokeless Tobacco: Never Alcohol Use Standard Drinks/Week Comments Yes 0 (1 standard drink = 0.6 oz pur e alcohol) PHQ-2 Answer Date Recorded PHQ-2 Score 19 12/22/2018 Childcare Answer Date Recorded Childcare Unknown 01/07/2019 Employment Answer Date Recorded Employment Unknown 01/07/2019 Comments No Sex and Gender Information Value [...] Assessment Noted Time PHQ-9 Depression Total Score: 19 12/22/ 019 8:00 AM EDT documented as of this encounter Care Teams Graduate Teaching Associate Relationship Specialty Start Date End Date Emelia Rod APRN-CHRISTINA [address] [place] [address] PCP - General Family Medicine 10/16/23 documented as of this encounter
--- OUTSIDE RECORDS SUMMARY | 2025-03-16 17:39 | XMS_ITS | Encounter Summary ---
Author Organization [facility] tem Address [id number] [address] [place] [address] Care Team Providers Care Blog Writer Name Role Phone JigneshEmelia layne TOP LIFT AND AUTOMATIC WINDOW REPAIRER-CHRONOGRAPH OPERATOR Primary Care Provide r Encounter Details Date Type Department Care Team (Late st Contact Info) Description 11/28/2020 Orders Only [facility] [address] [place] [phone] Bipin Cox CNA Chronic midline low back pain with left-sided sciatica Social History Tobacco Use Types Packs/Day Years [...] Procedure Name Priority Date/Time Associated Diagnosis Comments AMB REFERRAL TO PHYSICAL THERAPY Routine 11/16/2020 Chronic midline low back pain with left-sided sciatica documented in this encounter Results * [facility] [place] (11/16/2020) 11/16/2020 Emelia Rod TOP LIFT AND AUTOMATIC WINDOW REPAIRER-CHRONOGRAPH OPERATOR OUTPATIENT REFERRAL O RDERABLES Final Result MANUALLY TRANSCRIBED RESULTS documented in this encounter Visit Diagnoses Diagnosis Chronic midline low back pain with left-sided sciatica documented in this encounter Additional Health Concerns Infection Onset Date Last Indicated Resolved Time COVID-19 Rule-Out 06/12/2023 06/12/2023 06/12/2023 7:27 PM EDT Assessment Noted Time PHQ-9 Depression Total Score: 0 11/29/19 21 1:00 PM EDT documented as of this encounter Care Teams Blog Writer Relationship Specialty Start Date End Date Emelia Rod APRN-CNP [address] [place] [address] PCP - General Family Medicine 10/16/23 documented as of this encounter
--- OUTSIDE RECORDS SUMMARY | 2025-03-16 17:39 | XMS_ITS | Encounter Summary ---
Author Organization [facility] tem Address [id number] [address] [place] [address] Care Team Providers Care Camp Boss Name Role Phone Emleia Rod BRAIN SURGEON-WATER PIPE INSTALLER Primary Care Provide r Encounter Details Date Type Department Care Team (Late st Contact Info) Description 10/23/2020 Orders Only [facility] [address] [place] [phone] Emelia Rod APRN-WATER PIPE INSTALLER [address] [place], [place] [phone] Social History Tobacco Use Types Packs/Day Years [...] AM EDT documented as of this encounter Plan of Treatment Not on file documented as of this encounter Visit Diagnoses Not on filedocumented in this encounter Additional Health Concerns Infection Onset Date Last Indicated Resolved Time COVID-19 Rule-Out 06/12/2023 06/12/2023 06/12/2023 7:27 PM EDT Assessment Noted Time PHQ-9 Depression Total Score: 0 10/24/19 21 2:00 PM EDT documented as of this encounter Care Teams Camp Boss Relationship Specialty Start Date End Date Emelia Rod APRN-CHRISTINA [address] [place] [address] PCP - General Family Medicine 10/16/23 documented as of this encounter
--- OUTSIDE RECORDS SUMMARY | 2025-03-16 17:39 | XMS_ITS | Clinical Summary ---
Author Organization [address] tem Address [facility]-[id number] [address] [place] [address] Care Team Providers Care Java Enterprise Architect Name Role Phone ViolaEmelia KELLIE-LEAD RETAIL SALES ASSOCIATE Primary Care Provide r Allergies Active Allergy Reactions Criticality Noted Date Comments Amoxicillin-Pot Clavulanate Other (See Comments) 12/07/2022 Tongue swelling Sulfamethoxazole-Trimet hoprim Rash Low 04/30/2017 Medications EPINEPHrine (EPIPEN) 0.3 mg/0.3 mL auto-injector Inject 0.3 mL (0.3 mg total) into the appropriate muscle as needed (Anaphylaxis) for up to 1 dose. 1 each 12/08/19 23 Active diphenhydrAMINE (BENADRYL) 25 mg capsule Take 1 capsule (25 mg total) by mouth every 6 (six) hours as needed for itching for up to 10 doses. 10 capsule 12/08/19 23 Active famotidine (PEPCID) 20 mg tablet Take 1 tablet (20 mg total) by mouth in the morning and 1 tablet (20 mg total) before bedtime. 20 tablet 01/21/20 23 Active promethazine (PHENERGAN) 25 mg suppository Insert 1 suppository (25 mg total) into the rectum every 6 (six) hours as needed for nausea or vomiting. 12 each 01/21/20 Active Additional Information Patient not taking.Reported on 06/29/2023 lidocaine (XYLOCAINE) 2 % jellyIndications:H emorrhoids, unspecified hemorrhoid type Apply 1 Application topically as needed for pain. 30 mL 06/01/20 23 Active Additional Information Patient not taking.Reported on 06/29/2023 ondansetron ODT (ZOFRAN ODT) 4 mg disintegrating tablet Dissolve 1 tablet (4 mg total) on tongue every 8 (eight) hours as needed for nausea for up to 20 doses. 20 tablet 07/08/20 23 Active hydrocortisone (ANUSOL-HC) 2.5 % rectal creamIndications:H emorrhoids, unspecified hemorrhoid type Insert 1 Application into the rectum in the morning and 1 Application before bedtime. 30 g 1 09/08/19 24 Active acetaminophen (TYLENOL EXTRA STRENGTH) 500 mg tablet Take 1 tablet (500 mg total) by mouth every 6 (six) hours as needed for pain. 30 tablet 10/16/19 24 Active ibuprofen (MOTRIN) 600 mg tablet Take 1 tablet (600 mg total) by mouth every 6 (six) hours as needed for pain. 30 tablet 10/16/19 24 Active albuterol (PROVENTIL HFA;VENTOLIN HFA) 90 mcg/actuation inhalerIndications :Asthma, unspecified asthma severity, unspecified whether complicated, unspecified whether persistent INHALE 2 PUFFS EVERY 6 HOURS NEEDED FOR WHEEZING 18 g 11 07/25/20 24 Active Active Problems Problem Noted Date Diagnosed Date Cannabinoid hyperemesis syndrome 06/23/2022 External hemorrhoid 12/11/2020 Asthma 12/22/2018 Encounters Date Type Department Care Team Description 03/13/2025 11:02 AM EDT - 03/13/2025 1:35 PM EDT [facility] [address] [place] [address] Gerard Ca DO Nausea and vomiting, unspecified vomiting type (Primary Dx) Discharge Disposition: Home 03/12/2025 9:16 AM EDT - 03/12/2025 11:30 AM EDT [facility] [address] [place] [address] Marcial Redding MD Cyclical vomiting (Primary Dx) Discharge Disposition: Home 03/12/2025 Travel from Last 3 Months Immunizations Immunization Administration Dates Next Due Tdap 06/01/2014 Family History Medical History Relation Name Comments Asthma Father COPD Father Emphysema Father Cancer Maternal Aunt Colon cancer Maternal Aunt Diabetes Maternal Aunt Brain Tumor Maternal Grandfather Cancer Maternal Grandfather Heart failure Maternal Grandmother Hypertension Mother Osteoporosis Mother Osteoporosis Sister Relation Name Status Comments Father Maternal Aunt Maternal Grandfather Maternal Grandmother Mother Alive Paternal Grandfather Paternal Grandmother Sister Alive Social History Tobacco Use Types Packs/Day Years Used Date Smoking Tobacco: Every Day Cigarettes 0.3 19 Smokeless Tobacco: Never Tobacco Cessation:Ready to Q uit: Not Asked; Counseling Given: Not Answered Alcohol Use Standard Drinks/Week Comments Yes 0 [...] Mass Index 22.94 03/13/2025 11:04 AM EDT Plan of Treatment Health Maintenance Due Date Last Done Comments Tobacco Counseling 1983 Depression Screening 01/21/2024 01/20/2023 DTaP,Tdap and Td Vaccines (2 - Td or Tdap) 06/01/2024 06/01/2014 Influenza Vaccine 04/10/2025 Adult BMI Screening 03/13/2026 03/13/2025 Tobacco Screening 03/13/2026 03/13/2025 Medical Devices Not on file Procedures Procedure Name Priority Date/Time Associated Diagnosis Comments EXTRA TUBES BLUE TOP Routine 03/13/2025 11:23 AM EDT EXTRA TUBES Routine 03/13/2025 11:23 AM EDT LIPASE STAT 03/13/2025 11:23 AM EDT COMPREHENSIVE METABOLIC PANEL STAT 03/13/2025 11:23 AM EDT CBC WITH AUTO DIFFERENTIAL STAT 03/13/2025 11:23 AM EDT ECG 12-LEAD STAT 03/13/2025 11:16 AM EDT BLUE TOP Routine 03/12/2025 9:36 AM EDT RAINBOW DRAW Routine 03/12/2025 9:36 AM EDT LIPASE STAT 03/12/2025 9:35 AM EDT ETHANOL STAT 03/12/2025 9:35 AM EDT COMPREHENSIVE METABOLIC PANEL STAT 03/12/2025 9:35 AM EDT CBC WITH AUTO DIFFERENTIAL STAT 03/12/2025 9:35 AM EDT from Last 3 Months Results * Light Blue Top (03/13/2025 11:23 AM EDT) Extra Tube Auto Resulted 03/13/2025 1:01 PM EDT [facility] Blood Venous blood / Unknown 03/13/2025 11:23 AM EDT 03/13/2025 11:28 AM EDT us Gerard Ca DO LAB BLOOD ORDERABLES Final Resul t [facility] [address] [place] [address], [place] * (ABNORMAL) CBC auto differential (03/13/2025 11:23 AM EDT) Only the most recent of2 resultswithin the time period is included. WBC 13.7(H) 4 - 11 x10E9/L 03/13/2025 11:33 AM EDT [facility] RBC Count 3.98 3.8 - 5.2 X10E12/L 03/13/2025 11:33 AM EDT [facility] Hemoglobin 12.9 11.7 - 15.5 g/dL 03/13/2025 11:33 AM EDT [facility] Hematocrit 38.2 35 - 47 % 03/13/2025 11:33 AM EDT [facility] MCV 96 80 - 100 fL 03/13/2025 11:33 AM EDT [facility] MCH 32.5 27 - 34 pg 03/13/2025 11:33 AM EDT [facility] MCHC 33.8 32 - 36 g/dL 03/13/2025 11:33 AM EDT [facility] RDW 13.0 11.5 - 15 % 03/13/2025 11:33 AM EDT [facility] Platelet Count 322 150 - 450 X10E9/L 03/13/2025 11:33 AM EDT [facility] MPV 7.7 7 - 12 fL 03/13/2025 11:33 AM EDT [facility] Neutrophils % 79.1 % 03/13/2025 11:33 AM EDT [facility] Lymphocytes % 12.6 % 03/13/2025 11:33 AM EDT [facility] Monocytes % 7.9 % 03/13/2025 11:33 AM EDT [facility] Eosinophils % 0.1 % 03/13/2025 11:33 AM EDT [facility] Basophils % 0.3 % 03/13/2025 11:33 AM EDT [facility] Neutrophils Absolute (A) 10.8(H) 1.5 - 6.6 10*3/uL 03/13/2025 11:33 AM EDT [facility] Lymphocytes Absolute 1.7 1.0 - 3.5 10*3/uL 03/13/2025 11:33 AM EDT [facility] Monocytes Absolute 1.1(H) 0.0 - 0.9 10*3/uL 03/13/2025 11:33 AM EDT [facility] Eosinophils Absolute 0.0 0.0 - 0.4 10*3/uL 03/13/2025 11:33 AM EDT [facility] Basophils Absolute 0.0 0.0 - 0.2 10*3/uL 03/13/2025 11:33 AM EDT [facility] Differential Type AUTOMATED DIFFERENTIAL 03/13/2025 11:33 AM EDT [facility] Blood Venous blood / Unknown Venipuncture / Unknown 03/13/2025 11:23 AM EDT 03/13/2025 11:26 AM EDT us Gerard Ca DO LAB BLOOD ORDERABLES Final Resul t [facility] [address] [place] [address], [place] * Lipase (03/13/2025 11:23 AM EDT) Only the most recent of2 resultswithin the time period is included. LIPASE 26 17 - 40 U/L 03/13/2025 11:42 AM EDT [facility] Blood Venous blood / Unknown Venipuncture / Unknown 03/13/2025 11:23 AM EDT 03/13/2025 11:26 AM EDT us Gerard Ca DO LAB BLOOD ORDERABLES Final Resul t [facility] [address] [place] [address], [place] * (ABNORMAL) Comprehensive metabolic panel (03/13/2025 11:23 AM EDT) Only the most recent of2 resultswithin the time period is included. SODIUM 139 134 - 146 mmol/L 03/13/2025 11:45 AM EDT [facility] POTASSIUM 3.3(L) 3.5 - 5.0 mmol/L 03/13/2025 11:45 AM EDT [facility] CHLORIDE 109 98 - 109 mmol/L 03/13/2025 11:45 AM EDT [facility] CARBON DIOXIDE 19(L) 22 - 32 mmol/L 03/13/2025 11:45 AM EDT [facility] ANION GAP 11 5 - 15 mmol/L 03/13/2025 11:45 AM EDT [facility] BLOOD UREA NITROGEN 10 5 - 23 mg/dL 03/13/2025 11:45 AM EDT [facility] CREATININE 0.68 0.40 - 1.00 mg/dL 03/13/2025 11:45 AM EDT [facility] Comment:METHOD TRACEABLE TO IDMS STANDARD GLUCOSE 153(H) 65 - 99 mg/dL 03/13/2025 11:45 AM EDT [facility] CALCIUM 8.9 8.5 - 10.5 mg/dL 03/13/2025 11:45 AM EDT [facility] TOTAL PROTEIN 7.3 6.0 - 8.0 g/dL 03/13/2025 11:45 AM EDT [facility] ALBUMIN 4.4 3.2 - 5.3 g/dL 03/13/2025 11:45 AM EDT [facility] ALKALINE PHOSPHATASE 58 39 - 130 U/L 03/13/2025 11:45 AM EDT [facility] AST 59(H) <=41 U/L 03/13/2025 11:45 AM EDT [facility] ALT 64(H) <=31 U/L 03/13/2025 11:45 AM EDT [facility] BILIRUBIN,TOTAL 0.4 0.3 - 1.2 mg/dL 03/13/2025 11:45 AM EDT [facility] EGFR Non-Race Dependent >90 >=60 ml/min/1.7 3sq.m 03/13/2025 11:45 AM EDT [facility] Comment: eGFR not reported due to non-numeric value for Creatinine. Reported eGFR is based on the CKD-EPI 2020 equation that does not use a race coefficient. Blood Venous blood / Unknown Venipuncture / Unknown 03/13/2025 11:23 AM EDT 03/13/2025 11:26 AM EDT us Gerard Alexandre Ca DO LAB BLOOD ORDERABLES Final Resul t [facility] [address] [place] [address], [place] * ECG 12 lead (03/13/2025 11:16 AM EDT) 03/13/2025 11:1 6 AM EDT Narrative [facility] - 03/13/2025 11:57 AM EDT us Gerard Alexandre Ca DO ECG ORDERABLES Final Result [facility] * Light Blue Top (03/12/2025 9:36 AM EDT) Extra Tube Auto Resulted 03/12/2025 11:01 AM EDT [facility] Blood Venous blood / Unknown 03/12/2025 9:36 AM EDT 03/12/2025 9:39 AM EDT us Marcial Redding MD LAB BLOOD ORDERABLES Final Resu lt Performing Organization Address City/[facility]/ZIP Co de Phone Number [facility] [address] [place] [address], * Ethanol (03/12/2025 9:35 AM EDT) ETHANOL <0.010 <=0.080 g/dL 03/12/2025 10:06 AM EDT [facility] Comment: This report is intended for use in clinical monitoring or management of patients. Blood Venous blood / Unknown 03/12/2025 9:35 AM EDT 03/12/2025 9:39 AM EDT Marcial Redding MD LAB BLOOD ORDERABLES Final Resu lt Performing Organization Address [facility] Co de Phone Number [facility] [address] [place] [address], from Last 3 Months Insurance MEDICAID [place] Care Teams Java Enterprise Architect Relationship Specialty Start Date End Date Emelia Rod APRN-CHRISTINA [address] [place] [address] PCP - General Family Medicine 10/16/23
--- OUTSIDE RECORDS SUMMARY | 2025-03-16 17:39 | XMS_ITS | Encounter Summary ---
Author Organization [facility] [employer] tem Address [id number] [address] [place] [address] Care Team Providers Care Deputy Sheriff Civil Division Name Role Phone Emelia Rod Primary Care Provide r Reason for Visit * Reason Comments Med Refill Encounter Details Date Type Department Care Team (Late st Contact Info) Description 03/28/2023 Refill [facility] [address] [place] [phone] Emelia Rod APRN-CNP [address] [place], [place] [phone] Social History Tobacco Use Types Packs/Day Years [...] encounter Miscellaneous Notes * Telephone Encounter - HARVEY Bonilla - 03/28/2023 1:07 PM EDT Looks like GI was the last to fill this. * Telephone Encounter - More Rose CMA - 03/28/2023 1:07 PM EDT Left message for patient to have GI fill med documented in this encounter Plan of Treatment Not on file documented as of this encounter Visit Diagnoses Not on filedocumented in this encounter Additional Health Concerns Infection Onset Date Last Indicated Resolved Time COVID-19 Rule-Out 06/12/2023 06/12/2023 06/12/2023 7:27 PM EDT Assessment Noted Time PHQ-9 Depression Total Score: 0 01/21/20 23 7:00 AM EDT documented as of this encounter Care Teams Deputy Sheriff Civil Division Relationship Specialty Start Date End Date Emelia Rod APRN-CNP [address] [place] [address] PCP - General Family Medicine 10/16/23 documented as of this encounter
--- OUTSIDE RECORDS SUMMARY | 2025-03-16 17:39 | XMS_ITS | Encounter Summary ---
Author Organization [facility] [place] [facility] [employer] [facility] tem Address [facility] [place]-[id number] [address] [place] [address] Care Team Providers Care Pesticide Applicator Name Role Phone Emelia Rod Primary Care Provide r Reason for Visit * Reason Comments Med Refill Encounter Details Date Type Department Care Team (Late st Contact Info) Description 01/27/2019 Refill [facility] [address] [place] [phone] Emelia Rod APRN-CNP [address] [place], [place] [phone] Social History Tobacco Use Types Packs/Day Years [...] * Telephone Encounter - HARVEY Bonilla - 01/27/2019 1:25 AM EDT Does she need this refilled, this is as needed medication she should not have went through it in three weeks. If so her asthma is not controlled documented in this encounter Plan of Treatment Not on file documented as of this encounter Visit Diagnoses Not on filedocumented in this encounter Additional Health Concerns Infection Onset Date Last Indicated Resolved Time COVID-19 Rule-Out 06/12/2023 06/12/2023 06/12/2023 7:27 PM EDT Assessment Noted Time PHQ-9 Depression Total Score: 19 019 8:00 AM EDT documented as of this encounter Care Teams Pesticide Applicator Relationship Specialty Start Date End Date Emelia Rod APRN-CNP [address] [place] [address] PCP - General Family Medicine 10/16/23 documented as of this encounter
--- OUTSIDE RECORDS SUMMARY | 2025-03-16 17:39 | XMS_ITS | Encounter Summary ---
Author Organization [facility] Address [facility] [id number] [address] [place] [address] Care Team Providers Care Paste Mixer Liquid Name Role Phone Emelia Rod MANAGEMENT PROFESSIONAL-BUTCHER SUPERVISOR Primary Care Provide r Reason for Visit * Reason Comments Med Refill Encounter Details Date Type Department Care Team (Late st Contact Info) Description 08/18/2022 Refill [facility] [address] [place] [phone] Emelia Rod APRN-CNP [address] [place], [place] [phone] Social History Tobacco Use Types Packs/Day Years [...] documented as of this encounter Care Teams Paste Mixer Liquid Relationship Specialty Start Date End Date Emelia Rod APRN-BUTCHER SUPERVISOR [address] [place] [address] PCP - General Family Medicine 10/16/23 documented as of this encounter
[2025-03-16 17:40] VITALS: BP 113/80; PULSE 82; TEMP 36.8; O2SAT 97; BMI 21.6
--- NOTE | 2025-03-16 18:39 | ED.GENADUL1 ---
HPI HPI - General Adult General Chief complaint: Abdominal Pain Stated complaint: divertickulitus Time Seen by Provider: 03/16/25 17:52 Source: patient Mode of arrival: walk-in Limitations: no limitations History of Present Illness HPI narrative: Diverticulitis with abdominal pain nausea, vomiting, decreased urine output, bright red blood on emesis. She complains of fever and chills. States she was seen at [place] [facility]. Denies any testing states was given medication and discharged. She denies any stool output denies any bleeding from rectum. Patient states she has diverticulitis. Mild to moderate severity food worsens symptoms touch motion or change of position worsen symptoms. Zofran at home. Onset (ago): day(s) (5 days) Location: Reports abdomen Radiation: Reports back Severity: moderate Associated symptoms: Reports nausea/vomiting Related Data Previous Rx's ?Medication ?Instructions ?Recorded ciprofloxacin HCl 500 mg tablet 500 mg PO BID #14 tabs 03/16/25 (Cipro) dicyclomine 10 mg capsule 10 mg PO BID #10 caps 03/16/25 metronidazole 500 mg tablet 500 mg PO BID #14 tabs 03/16/25 potassium chloride 20 mEq/15 mL 10 meq (7.5 mL) PO DAILY #30 mL 03/16/25 oral liquid Allergies Allergy/AdvReac Type Severity Reaction Status Date / Time amoxicillin (From Augmentin) Allergy Severe Swelling Verified 03/16/25 17:46 of Lip/Tongue/Throat clavulanic acid (From Allergy Severe Swelling Verified 03/16/25 17:46 Augmentin) of Lip/Tongue/Throat sulfamethoxazole (From Allergy Severe Rash Verified 03/16/25 17:46 Bactrim) trimethoprim (From Bactrim) Allergy Severe Rash Verified 03/16/25 17:46 Opioid HPI Opioid Management Most Recent Opioid Data: Ur Phencyclidine Scrn, (NEGATIVE) Negative Today, 20:12 Review of Systems ROS Status of ROS 10 or more systems reviewed and unremarkable except as noted in history and below Constitutional Reports: fever and chills Ears, nose, mouth, and throat Reports: dry mouth Cardiovascular Denies: chest pain or palpitations Gastrointestinal Reports: abdominal pain, nausea and vomiting Genitourinary Reports: decreased urine ouput Musculoskeletal Reports: back pain Integumentary/Breast Denies: rash Endocrine Denies: excessive urination Hematologic/Lymphatic Denies: easy bruising PFSH PFSH Medical History (Updated 03/16/25 @ 21:12 by SOLANGE YEE II) Cyclic vomiting syndrome ?R11.15 - Cyclical vomiting syndrome unrelated to migraine (ICD-10) Diverticulitis ?K57.92 - Diverticulitis of intestine, part unspecified, without perforation or abscess without bleeding (ICD-10) Social History Little interest or pleasure in doing things: not at all Feeling down, depressed, or hopeless: not at all Exam Constitutional Vital Signs, click to edit/add: Last Vital Signs Temp 98.3 F 03/16/25 17:40 Pulse 63 03/16/25 21:09 Resp 20 03/16/25 21:09 BP 123/81 03/16/25 21:09 Pulse Ox 98 03/16/25 21:09 O2 Del Method Room Air 03/16/25 21:09 Documenting provider has reviewed patient's vital signs: yes Common normals: no apparent distress Exam limitations: no altered mental status General appearance: cooperative Nutritional appearance: not obese Orientation/consciousness: Yes awake, Yes oriented to person, Yes oriented to place and Yes oriented to time [facility] Common normals: normocephalic, hearing grossly normal bilaterally, external ears normal and moist oral mucous membranes Face and sinus: normal facial exam Eye Common normals: PERRL and EOMs intact bilaterally Neck & C-Spine Common normals: supple Chest Common normals: palpation of chest normal Respiratory Common normals: normal respiratory effort and clear to auscultation bilaterally Effort & inspection: able to speak in complete sentences Cardio Common normals: regular rate, regular rhythm, S1 normal heart sound, S2 normal heart sound and peripheral pulses 2+ throughout GI Common normals: tender Auscultation: normoactive bowel sounds Palpation: tender and guarding GI image (female):  1. Back & Pelvis Common normals: thoracic and lumbar spine normal to inspection and no thoracic nor lumbar tenderness Lumbar spine/lower back: paraspinal muscle tenderness Extremity Common normals: full ROM Neuro Sensorium/orientation: awake and alert Psych Common normals: mental status grossly normal and thought process normal Course Vital Signs Vital signs: Vital Signs Temperature 98.3 F 03/16/25 17:40 Pulse Rate 82 03/16/25 17:40 Respiratory Rate 18 03/16/25 17:40 Blood Pressure 113/80 03/16/25 17:40 Pulse Oximetry 97 03/16/25 17:40 Oxygen Delivery Method Room Air 03/16/25 17:40 Temperature 98.3 F 03/16/25 17:40 Pulse Rate 63 03/16/25 21:09 Respiratory Rate 20 03/16/25 21:09 Blood Pressure 123/81 03/16/25 21:09 Pulse Oximetry 98 03/16/25 21:09 Oxygen Delivery Method Room Air 03/16/25 21:09 Medical Decision Making MDM Narrative Medical decision making narrative: Was seen at outside ED twice no imaging performed. Was given medicines at home. Reviewed records do not have CT scan patient states she has history of diverticulitis. Will add CT scan after Dr. Cordoba evaluates patient. Will also add 10 mill equivalents of potassium IV. Reviewed patient's laboratory evaluation including potassium will add 10 mill equivalents IV while we await CT scan results. Patient improved we discussed medications including antibiotics which patient requests. As she has allergies to Augmentin and Bactrim will add Cipro 500 Flagyl 500 Bentyl 10 mg p.o. and Effer-K 50 mill equivalents. Plan of care with patient we offered admission patient refuses wants discharged home if possible. She has multiple children at home she feels better we discussed follow-up with primary care and her parent trainer. We discussed clinical diet patient agreeable to plan of care once discharged home. Differential Diagnosis Differential Diagnosis: Abdominal pain, diverticulitis, UTI. Lab Data Lab results reviewed: Yes I reviewed the patient's lab results Labs: Lab Results 03/16/25 03/16/25 Range/Units 18:19 20:12 WBC 13.1 H (4.0-11.0) 10^3/uL RBC 4.56 (4.20-5.40) 10^6/uL Hgb 15.1 (12.0-16.0) g/dL Hct 42.9 (36.0-48.0) % MCV 94.1 (81.0-99.0) fL MCH 33.1 (26.7-34.0) pg MCHC 35.2 (29.9-35.2) g/dL RDW 11.8 (11.0-15.0) % Plt Count 294 (150-450) 10^3/uL MPV 10.0 (9.5-13.5) fL Neut % (Auto) 74.3 (43.0-75.0) % Lymph % (Auto) 16.6 L (20.5-60.0) % [place] % (Auto) 8.2 (1.7-12.0) % Eos % (Auto) 0.3 L (0.9-7.0) % Baso % (Auto) 0.2 (0.2-2.0) % Neut # (Auto) 9.7 H (1.4-6.5) 10^3/uL Lymph # (Auto) 2.2 (1.2-3.8) 10^3/uL [place] # (Auto) 1.1 H (0.3-0.8) 10^3/uL Eos # (Auto) 0.0 (0.0-0.7) 10^3/uL Baso # (Auto) 0.0 (0.0-0.1) 10^3/uL Abs Immat Gran (auto) 0.05 H (0.00-0.03) 10^3/uL Imm/Tot Granulo (auto) 0.4 (0.0-0.5) % Sodium 141 (136-145) mmol/L Potassium 2.8 L* (3.5-5.1) mmol/L Chloride 101 (98-107) mmol/L Carbon Dioxide 30.4 (21.0-32.0) mmol/L Anion Gap 12.4 BUN 10.0 (7.0-18.0) mg/dL Creatinine 0.63 (0.55-1.02) mg/dL Est GFR ( Amer) >60 (>=60 mL/min/1.73m^2) Est GFR (Non-Af Amer) >60 (>=60 mL/min/1.73m^2) BUN/Creatinine Ratio 15.9 Glucose 109 H (74-106) mg/dL Calcium 9.2 (8.5-10.1) mg/dL Magnesium 2.2 (1.8-2.4) mg/dL Total Bilirubin 0.7 (0.2-1.0) mg/dL AST 27 (15-37) U/L ALT 75 H (14-59) U/L Alkaline Phosphatase 64 (46-116) U/L Total Protein 7.6 (6.4-8.2) g/dL Albumin 4.0 (3.4-5.0) g/dL Globulin 3.6 g/dL Albumin/Globulin Ratio 1.1 Lipase 20.0 (16.0-77.0) U/L Urine Color Dk. yellow (YELLOW) Urine Clarity Sl cloudy (CLEAR) Urine pH 6.5 (5.0-9.0) Ur Specific [place] 1.015 (1.005-1.025) Urine Protein 100 A (NEG/TRACE) mg/dL Urine Glucose (UA) Negative (NEGATIVE) mg/dL Urine Ketones 15 A (NEGATIVE) mg/dL Urine Occult Blood Negative (NEGATIVE) Urine Nitrite Negative (NEGATIVE) Urine Bilirubin Moderate A (NEGATIVE) Urine Urobilinogen 4.0 A (0.2-1.0) EU/dL Ur Leukocyte Esterase Trace A (NEGATIVE) Urine RBC 0-2 (0-2) #/HPF Urine WBC 2-5 A (NONE SEEN) #/HPF Ur Squamous Epith Cells Few A (NONE/RARE) #/LPF Urine Crystals None seen (None Seen) #/HPF Urine Bacteria Small A (NONE SEEN) #/HPF Urine Casts None seen (NONE SEEN) #/LPF Urine Mucus Large A (NONE SEEN) Ur Culture Indicated? Yes-[facility] [place] Urine Opiates Screen Positive A (NEGATIVE) Ur Buprenorphine Scrn Negative (NEGATIVE) Ur Oxycodone Screen Negative (NEGATIVE) Urine Methadone Screen Negative (NEGATIVE) Ur Barbiturates Screen Negative (NEGATIVE) U Tricyclic Antidepress Negative (NEGATIVE) Ur Phencyclidine Scrn Negative (NEGATIVE) Ur Amphetamines Screen Negative (NEGATIVE) U Methamphetamines Scrn Negative (NEGATIVE) U Benzodiazepines Scrn Negative (NEGATIVE) Urine Cocaine Screen Negative (NEGATIVE) U Cannabinoids Screen Positive A (NEGATIVE) Discharge Plan Discharge Chief Complaint: Abdominal Pain Clinical Impression: Diverticulitis Nausea & vomiting Qualifiers: Vomiting type: unspecified Qualified Code(s): R11.2 - Nausea with vomiting, unspecified Abdominal pain Qualifiers: Abdominal location: left lower quadrant Qualified Code(s): R10.32 - Left lower quadrant pain Patient Disposition: Home, Self-Care Time of Disposition Decision: 21:12 Condition: Good Mode of Transportation: Private Vehicle Prescriptions / Home Meds: New ciprofloxacin HCl [Cipro] 500 mg tablet 500 mg PO BID Qty: 14 0RF dicyclomine 10 mg capsule 10 mg PO BID Qty: 10 0RF metronidazole 500 mg tablet 500 mg PO BID Qty: 14 0RF potassium chloride 20 mEq/15 mL liquid 10 meq PO DAILY Qty: 30 0RF Print Language: Lebanese Instructions: Diverticulitis (ED), Diverticulitis Diet (ED), Abdominal Pain (ED) Additional Instructions: CLear liquid Diet for 24 hours including water, Jell-O, popsicles, clear broth, Gatorade. Follow-up with primary care and your parent trainer. Return to if any symptoms worsen or new symptoms develop. Referrals: Emelia Rod NP [Primary Care Provider] - As soon as possible
[2025-03-16 18:45] LABS: Hematocrit 42.9 % (36.0-48.0); Hemoglobin 15.1 g/dL (12.0-16.0); Immature Granulocytes Abs Auto 0.05 10^3/uL (0.00-0.03); Immature Granulocytes Pct Auto 0.4 % (0.0-0.5); Lymphocytes Absolute Auto 2.2 10^3/uL (1.2-3.8); Mean Corpuscular HGB Conc 35.2 g/dL (29.9-35.2); Mean Corpuscular Hemoglobin 33.1 pg (26.7-34.0); Mean Corpuscular Volume 94.1 fL (81.0-99.0); Platelet Count 294 10^3/uL (150-450); Red Blood Count 4.56 10^6/uL (4.20-5.40); White Blood Count 13.1 10^3/uL (4.0-11.0)
[2025-03-16] MEDS: 0.9 % SODIUM CHLORIDE 1,000 ML 1000 ML IV (18:54)
[2025-03-16] MEDS: MORPHINE SULFATE 2 MG/ML SYRINGE IV (18:55)
[2025-03-16 19:11] LABS: Alanine Aminotransferase 75 U/L (14-59); Albumin Globulin Ratio 1.1; Albumin Level 4.0 g/dL (3.4-5.0); Alkaline Phosphatase 64 U/L (46-116); Aspartate Amino Transferase 27 U/L (15-37); Blood Urea Nitrogen 10.0 mg/dL (7.0-18.0); Calcium 9.2 mg/dL (8.5-10.1); Carbon Dioxide 30.4 mmol/L (21.0-32.0); Chloride 101 mmol/L (98-107); Estimated GFR (African America >60 (>=60 mL/min/1.73m^2); Estimated GFR (Non-African Ame >60 (>=60 mL/min/1.73m^2); Globulin 3.6 g/dL; Glucose 109 mg/dL (74-106); Lipase 20.0 U/L (16.0-77.0); Magnesium 2.2 mg/dL (1.8-2.4); Total Protein 7.6 g/dL (6.4-8.2)
[2025-03-16 19:16] VITALS: BP 117/64; PULSE 59; O2SAT 98
[2025-03-16 19:16] LABS: Anion Gap 12.4; Sodium 141 mmol/L (136-145)
[2025-03-16 19:18] LABS: Potassium 2.8 mmol/L (3.5-5.1)
--- NOTE | 2025-03-16 19:28 | CT_ITS ---
The [address] [address] Patient Name: PALMER BUCIO MRN: [id number] date: 1985 Sex: F Assigned Patient Location: ER Current Patient Location: ER Accession/Order Number: [id number] Exam Date: 03/16/2025 20:38 Report Date: 03/16/2025 20:47 At the request of: VALENTIN NARVAEZ Procedure: CT abdomen pelvis w con CT ABDOMEN AND PELVIS WITH INTRAVENOUS CONTRAST: CLINICAL HISTORY: llq/luq abd pain COMPARISON: None TECHNIQUE: Spiral images were obtained through the abdomen and pelvis following the administration of intravenous contrast. This CT exam was performed using one or more following dose reduction techniques: Automated exposure control, adjustment of the mA and/or kV according to patient size, or use of iterative reconstruction technique. FINDINGS: Lung Bases: [Lung bases are clear. Organs: [Liver, spleen, adrenals and pancreas are unremarkable.] Right superior pole renal cyst. No hydronephrosis. There is pericholecystic fluid versus wall thickening] involving the gallbladder. GI: Mild retained stool. No bowel obstruction. Colonic diverticulosis. Short segment mural thickening involving the sigmoid colon noted measuring approximately 2.6 cm in length noted. Appendix unremarkable.[ Pelvis:[Uterus absent. No adnexal mass. Bladder mostly collapsed.] Peritoneum/Retroperitoneum:Trace free fluid dependent pelvis. No free air. Small fat-containing umbilical no significant hernia.[ Abd wall/Bones:No suspicious osseous lesion.[ CT/CT abdomen pelvis w con IMPRESSION: Short segment mural thickening involving sigmoid colon with background colonic diverticulosis noted. No definite surrounding inflammatory changes. If warranted, consider short-term follow-up or consider colonoscopy. Pericholecystic wall thickening of the gallbladder. Findings of uncertain significance given the reported left-sided symptoms Otherwise negative acute inflammatory process or bowel obstruction. Impression dictated by: Mahad Evans M.D. 03/16/2025 8:47 PM Dictation Location: [place] [address] Electronically authenticated by: [id number] Y Date: 03/16/2025 20:47
[2025-03-16 20:22] LABS: Glucose Urine UA NEGATIVE (NEGATIVE)
[2025-03-16] MEDS: POTASSIUM CHLORIDE IN WATER 10 MEQ/100 ML PREMIX 100 MEQ IV (20:33)
[2025-03-16 20:34] LABS: Cannabinoid Screen Urine POSITIVE (NEGATIVE); Methamphetamines Screen Urine NEGATIVE (NEGATIVE); Tricyclic Antidepressant Urine NEGATIVE (NEGATIVE)
[2025-03-16] MEDS: 0.9 % SODIUM CHLORIDE 1,000 ML 999 ML IV (20:34)
[2025-03-16 20:42] LABS: Crystals Seen? None Seen #/HPF (None Seen)
[2025-03-16 20:43] LABS: Cast Seen? NONE SEEN #/LPF (NONE SEEN); Urine Culture Indicated YES-FRMC
[2025-03-16 21:09] VITALS: BP 123/81; PULSE 63; O2SAT 98
[2025-03-16] MEDS: DICYCLOMINE HCL 10 MG CAPSULE PO (21:26)
[2025-03-16] MEDS: METRONIDAZOLE 250 MG TABLET 500 MG PO (21:26)
[2025-03-16] MEDS: CIPROFLOXACIN HCL 500 MG TABLET PO (21:27)
[2025-03-16 21:29] VITALS: BP 114/67; PULSE 73; O2SAT 97
[2025-03-16 21:43] VITALS: BP 117/98; PULSE 63; O2SAT 99
== END 2025-03-16 21:44 | disposition home or self-care (01) ==
PROVIDERS: Physician Assistant; Emergency Provider Emergency Medicine; PCP Nurse Practitioner Family
DX: K57.92 Diverticulitis of intestine, part unspecified, without perforation or abscess without bleeding (principal); R11.2 Nausea with vomiting, unspecified; R10.32 Left lower quadrant pain
CPT/HCPCS: 36415; 74177; 80053; 80307; 81001; 83690; 83735; 85025; 87086; 96361; 96365; 96375; 99285; J2270; J2405; J3480; Q9967

== ENCOUNTER 2025-03-19 16:21 | Emergency (ER) | payer OTHER, SELFPAY ==
[2025-03-19 16:25] VITALS: BP 117/77; PULSE 92; TEMP 37.5; O2SAT 99; BMI 24.9
--- NOTE | 2025-03-19 16:40 | ED.EXTPRO1 ---
HPI - Extremity Problem General Chief complaint: Extremity Problem, Nontraumatic Stated complaint: SWOLLEN LEGS Time Seen by Provider: 03/19/25 16:31 Source: patient Mode of arrival: walk-in Limitations: no limitations History of Present Illness HPI Narrative: The patient was just evaluated here on the seventh which was 3 days ago for possible diverticulitis she started taking antibiotic and she noted that her legs bilaterally look swollen as well as she feels like she is retaining urine in the lower abdomen The patient have no nausea no vomiting no other concerns she have some heaviness when moving around with her legs and she did mention that she has been standing up for the last few days for some family occasion The patient have no pain in her chest no nausea no vomiting no other complaints and she has been finishing antibiotic with her abdominal pain resolved Related Data Previous Rx's ?Medication ?Instructions ?Recorded ciprofloxacin HCl 500 mg tablet 500 mg PO BID #14 tabs 03/16/25 (Cipro) dicyclomine 10 mg capsule 10 mg PO BID #10 caps 03/16/25 metronidazole 500 mg tablet 500 mg PO BID #14 tabs 03/16/25 furosemide 20 mg tablet (Lasix) 20 mg PO DAILY 3 days #3 tabs 03/19/25 potassium bicarbonate-citric acid 25 meq PO DAILY 3 doses #3 ea 03/19/25 25 mEq effervescent tablet Allergies Allergy/AdvReac Type Severity Reaction Status Date / Time amoxicillin (From Augmentin) Allergy Severe Swelling Verified 03/19/25 16:24 of Lip/Tongue/Throat clavulanic acid (From Allergy Severe Swelling Verified 03/19/25 16:24 Augmentin) of Lip/Tongue/Throat sulfamethoxazole (From Allergy Severe Rash Verified 03/19/25 16:24 Bactrim) trimethoprim (From Bactrim) Allergy Severe Rash Verified 03/19/25 16:24 Review of Systems ROS Status of ROS 10 or more systems reviewed and unremarkable except as noted in history and below [facility] Medical History (Updated 03/19/25 @ 17:58 by Lorri Seay MD) Cyclic vomiting syndrome ?R11.15 - Cyclical vomiting syndrome unrelated to migraine (ICD-10) Diverticulitis ?K57.92 - Diverticulitis of intestine, part unspecified, without perforation or abscess without bleeding (ICD-10) Social History Little interest or pleasure in doing things: not at all Feeling down, depressed, or hopeless: not at all Exam Narrative Exam Narrative: Nurses notes and vital signs reviewed and patient is not hypoxic. General: Well-appearing and in no apparent distress. Skin: Warm, dry, no pallor noted. No rash. Head: Normocephalic, atraumatic. Neck: Supple, non-tender. Eye: Pupils are equal, round and EOMI. No scleral icterus. Ears, Nose, Mouth, and Throat: TM are clear, no nasal mucosal hypertrophy. Oral mucosa is moist, no posterior oropharynx erythema, uvula is mid-line Cardiovascular: Regular Rate and Rhythm without murmur, gallop or rub. Respiratory: No accessory muscle use or respiratory distress. Lungs are clear to auscultation, no wheezing, rales or rhonchi Chest Wall: no tenderness Back: No midline thoracic or lumbar vertebral tenderness. No CVA tenderness Musculoskeletal: normal ROM, no calf or popliteal tenderness, mildly pitting 1+ bilateral leg edema mostly in the bilateral lower extremity just below the knee GI: Abdomen is soft, non-distended. Normal bowel sounds. No masses appreciated. No tenderness to palpation. No rebound, guarding, or rigidity noted. Neurological: A&O x4. No cranial nerve dysfunction observed. No truncal ataxia. Moves all extremities. Sensation intact. Psychiatric: Cooperative and interactive. Normal mood and affect. Constitutional Vital Signs, click to edit/add: Last Vital Signs Temp 99.5 F 03/19/25 16: Pulse 92 H 03/19/25 16:25 Resp 03/19/25 16:25 BP 117/77 03/19/25 16:25 Pulse Ox 99 03/19/25 16:25 O2 Del Method Room Air 03/19/25 16:25 Course Vital Signs Vital signs: Vital Signs Temperature 99.5 F 03/19/25 16:25 Pulse Rate 92 H 03/19/25 16:25 Respiratory Rate 16 03/19/25 16:25 Blood Pressure 117/77 03/19/25 16:25 Pulse Oximetry 99 03/19/25 16:25 Oxygen Delivery Method Room Air 03/19/25 16:25 Temperature 99.5 F 03/19/25 16:25 Pulse Rate 92 H 03/19/25 16:25 Respiratory Rate 16 03/19/25 16:25 Blood Pressure 117/77 03/19/25 16:25 Pulse Oximetry 99 08/10/25 16:25 Oxygen Delivery Method Room Air 03/19/25 16:25 MDM - Extremity (Nontraumatic) MDM Narrative Medical decision making narrative: The patient CBC and chemistry showed hypokalemia with potassium of 3 otherwise did not show any acute pathology regarding her kidney function The patient also had a D-dimer that was elevated and that why she was ordered a duplex to be done in the outpatient Patient was started on 3 days of Lasix supportive care for her lower extremity , instructed about elevation and rest and follow-up with her primary care as outpatient Patient provided with potassium supplement and she was told to stop her potassium supplement that she was prescribed before because it was a low dose Patient to come back to the ER in case of any worsening of symptoms or any new symptoms regarding shortness of breath or any other concerns The patient is to follow up with primary care physician in next 2-3 days or to return to the emergency department should any of the signs or symptoms worsen or new symptoms develop. The patient agrees with the following Diagnosis and Treatment plan and the patient will be discharged home. Lab Data Labs: Lab Results 03/19/25 Range/Units 17:04 WBC 9.2 (4.0-11.0) 10^3/uL RBC 3.83 L (4.20-5.40) 10^6/uL Hgb 12.9 (12.0-16.0) g/dL Hct 37.5 (36.0-48.0) % MCV 97.9 (81.0-99.0) fL MCH 33.7 (26.7-34.0) pg MCHC 34.4 (29.9-35.2) g/dL RDW 12.4 (11.0-15.0) % Plt Count 265 (150-450) 10^3/uL MPV 9.6 (9.5-13.5) fL Neut % (Auto) 76.0 H (43.0-75.0) % Lymph % (Auto) 15.6 L (20.5-60.0) % [place] % (Auto) 7.0 (1.7-12.0) % Eos % (Auto) 0.9 (0.9-7.0) % Baso % (Auto) 0.2 (0.2-2.0) % Neut # (Auto) 7.0 H (1.4-6.5) 10^3/uL Lymph # (Auto) 1.4 (1.2-3.8) 10^3/uL [place] # (Auto) 0.6 (0.3-0.8) 10^3/uL Eos # (Auto) 0.1 (0.0-0.7) 10^3/uL Baso # (Auto) 0.0 (0.0-0.1) 10^3/uL Abs Immat Gran (auto) 0.03 (0.00-0.03) 10^3/uL Imm/Tot Granulo (auto) 0.3 (0.0-0.5) % D-Dimer 1.52 H* (<=0.59) mg/L FEU Sodium 143 (136-145) mmol/L Potassium 3.0 L (3.5-5.1) mmol/L Chloride 106 (98-107) mmol/L Carbon Dioxide 31.2 (21.0-32.0) mmol/L Anion Gap 8.8 BUN 10.0 (7.0-18.0) mg/dL Creatinine 0.79 (0.55-1.02) mg/dL Est GFR ( Amer) >60 (>=60 mL/min/1.73m^2) Est GFR (Non-Af Amer) >60 (>=60 mL/min/1.73m^2) BUN/Creatinine Ratio 12.7 Glucose 109 H (74-106) mg/dL Calcium 8.7 (8.5-10.1) mg/dL Total Bilirubin 0.2 (0.2-1.0) mg/dL AST 17 (15-37) U/L ALT 44 (14-59) U/L Alkaline Phosphatase 57 (46-116) U/L Total Protein 6.5 (6.4-8.2) g/dL Albumin 3.3 L (3.4-5.0) g/dL Globulin 3.2 g/dL Albumin/Globulin Ratio 1.0 Serum HCG, Qual Negative (NEGATIVE) Discharge Plan Discharge Chief Complaint: Extremity Problem, Nontraumatic Clinical Impression: Bilateral leg edema, Hypokalemia Patient Disposition: Home, Self-Care Time of Disposition Decision: 17:58 Condition: Good Prescriptions / Home Meds: New furosemide [Lasix] 20 mg tablet 20 mg PO DAILY 3 Days Qty: 3 0RF potassium bicarb-citric acid 25 mEq tablet, effervescent 25 meq PO DAILY Qty: 3 0RF Discontinued potassium chloride 20 mEq/15 mL liquid 10 meq PO DAILY Qty: 30 0RF No Action ciprofloxacin HCl [Cipro] 500 mg tablet 500 mg PO BID Qty: 14 0RF dicyclomine 10 mg capsule 10 mg PO BID Qty: 10 0RF metronidazole 500 mg tablet 500 mg PO BID Qty: 14 0RF Print Language: Slovenian Instructions: Hypokalemia (ED), Edema (ED) Referrals: Emelia Rod NP [Primary Care Provider] - 1 week Discharge Date/Time: 03/19/25 18:24
[2025-03-19 17:09] LABS: Hematocrit 37.5 % (36.0-48.0); Hemoglobin 12.9 g/dL (12.0-16.0); Immature Granulocytes Abs Auto 0.03 10^3/uL (0.00-0.03); Immature Granulocytes Pct Auto 0.3 % (0.0-0.5); Lymphocytes Absolute Auto 1.4 10^3/uL (1.2-3.8); Mean Corpuscular HGB Conc 34.4 g/dL (29.9-35.2); Mean Corpuscular Hemoglobin 33.7 pg (26.7-34.0); Mean Corpuscular Volume 97.9 fL (81.0-99.0); Platelet Count 265 10^3/uL (150-450); Red Blood Count 3.83 10^6/uL (4.20-5.40); White Blood Count 9.2 10^3/uL (4.0-11.0)
[2025-03-19 17:26] LABS: Alanine Aminotransferase 44 U/L (14-59); Albumin Globulin Ratio 1.0; Albumin Level 3.3 g/dL (3.4-5.0); Alkaline Phosphatase 57 U/L (46-116); Anion Gap 8.8; Aspartate Amino Transferase 17 U/L (15-37); Blood Urea Nitrogen 10.0 mg/dL (7.0-18.0); Calcium 8.7 mg/dL (8.5-10.1); Carbon Dioxide 31.2 mmol/L (21.0-32.0); Chloride 106 mmol/L (98-107); Estimated GFR (African America >60 (>=60 mL/min/1.73m^2); Estimated GFR (Non-African Ame >60 (>=60 mL/min/1.73m^2); Globulin 3.2 g/dL; Glucose 109 mg/dL (74-106); Potassium 3.0 mmol/L (3.5-5.1); Sodium 143 mmol/L (136-145); Total Protein 6.5 g/dL (6.4-8.2)
== END 2025-03-19 18:24 | disposition home or self-care (01) ==
PROVIDERS: Emergency Provider Emergency Medicine; PCP Nurse Practitioner Family
DX: R60.0 Localized edema (principal); E87.6 Hypokalemia
CPT/HCPCS: 36415; 80053; 84703; 85025; 85378; 99283

== ENCOUNTER 2025-03-23 11:05 | Emergency (ER) | payer OTHER, SELFPAY ==
--- OUTSIDE RECORDS SUMMARY | 2025-03-12 09:16 | XMS_ITS | Encounter Summary ---
Author Organization [facility] tem Address [id number] [address] [place] [address] Care Team Providers Care Documentation Nurse Name Role Phone Emelia Rod APRN-COORDINATOR OF LIBRARY SERVICES Primary Care Provide r Reason for Visit * Reason Comments Vomiting Diarrhea Encounter Details Date Type Department Care Team (Late st Contact Info) Description 03/12/2025 9:16 AM EDT - 03/12/2025 11:30 AM EDT Emergency [facility] - Emergency [address] [place] [id number] Marcial Redding MD [address] [place] [address] Cyclical vomiting (Primary Dx) Discharge Disposition: Home [...] Everywhere. * Nausea and vomiting in adults ([place]) documented in this encounter Medications at Time [...] from the original note were not included. [facility] - EMERGENCY Pt Name: Bernie Meza Birthdate: [...] ??? Meningitis ??? Migraine ??? Rectal cancer ([facility]) ??? Sacroiliac joint pain with Pressure ??? Visual impairment Past Surgical History: Past Surgical History: Procedure Laterality Date ??? COLONOSCOPY 2019 [place] ??? COLONOSCOPY W/ BIOPSIES AND POLYPECTOMY x4 [...] documented in this encounter Plan of Treatment Upcoming Encounters Date Type Department Care Team (Late st Contact Info) Description 03/27/2025 10:00 AM EDT Office Visit [facility] [address] [place] [phone] Emelia Rod, KELLIE-COORDINATOR OF LIBRARY SERVICES [address] [place] [address] documented as of this encounter Procedures Procedure [...] Tube Auto Resulted 03/12/2025 11:01 AM EDT [facility] Blood Venous blood / Unknown 03/12/2025 9:36 AM EDT 03/12/2025 9:39 AM EDT us Marcial Redding MD LAB BLOOD ORDERABLES Final Resu lt [address] [place] [address], [place] * Lipase (03/12/2025 9:35 AM EDT) LIPASE 28 17 - 40 U/L 03/12/2025 10:04 AM EDT [facility] Blood Venous blood / Unknown 03/12/2025 9:35 AM EDT 03/12/2025 9:39 AM EDT us Marcial Redding MD LAB BLOOD ORDERABLES Final Resu lt Performing Organization Address [facility] Co de Phone Number [address] [place] [address], [place] * Ethanol (03/12/2025 9:35 AM EDT) ETHANOL <0.010 <=0.080 g/dL 03/12/2025 10:06 AM EDT [facility] Comment: This report is intended for use in clinical monitoring or management of patients. Blood Venous blood / Unknown 03/12/2025 9:35 AM EDT 03/12/2025 9:39 AM EDT us Marcial Redding MD LAB BLOOD ORDERABLES Final Resu lt Performing Organization Address City/[facility]/ZIP Co de Phone Number [address] [place] [address], [place] * (ABNORMAL) Comprehensive metabolic panel (03/12/2025 9:35 AM EDT) SODIUM 139 134 - 146 mmol/L 03/12/2025 10:06 AM EDT [facility] POTASSIUM 4.0 3.5 - 5.0 mmol/L 03/12/2025 10:06 AM EDT [facility] CHLORIDE 111(H) 98 - 109 mmol/L 03/12/2025 10:06 AM EDT [facility] CARBON DIOXIDE 19(L) 22 - 32 mmol/L 03/12/2025 10:06 AM EDT [facility] ANION GAP 9 5 - 15 mmol/L 03/12/2025 10:06 AM EDT [facility] BLOOD UREA NITROGEN 24(H) 5 - 23 mg/dL 03/12/2025 10:06 AM EDT [facility] CREATININE 0.72 0.40 - 1.00 mg/dL 03/12/2025 10:06 AM EDT [facility] Comment:METHOD TRACEABLE TO IDMS STANDARD GLUCOSE 144(H) 65 - 99 mg/dL 03/12/2025 10:06 AM EDT [facility] CALCIUM 8.9 8.5 - 10.5 mg/dL 03/12/2025 10:06 AM EDT [facility] TOTAL PROTEIN 7.1 6.0 - 8.0 g/dL 03/12/2025 10:06 AM EDT [facility] ALBUMIN 4.2 3.2 - 5.3 g/dL 03/12/2025 10:06 AM EDT [facility] ALKALINE PHOSPHATASE 51 39 - 130 U/L 03/12/2025 10:06 AM EDT [facility] AST 20 <=41 U/L 03/12/2025 10:06 AM EDT [facility] ALT 15 <=31 U/L 03/12/2025 10:06 AM EDT [facility] BILIRUBIN,TOTAL 0.7 0.3 - 1.2 mg/dL 03/12/2025 10:06 AM EDT [facility] EGFR Non-Race Dependent >90 >=60 ml/min/1.7 3sq.m 03/12/2025 10:06 AM EDT [facility] Comment: eGFR not reported due to non-numeric value for Creatinine. Reported eGFR is based on the CKD-EPI 2020 equation that does not use a race coefficient. Blood Venous blood / Unknown 03/12/2025 9:35 AM EDT 03/12/2025 9:39 AM EDT us Marcial Redding MD LAB BLOOD ORDERABLES Final Resu lt [facility] [address] [facility] [place] [address], * (ABNORMAL) CBC auto differential (03/12/2025 9:35 AM EDT) WBC 10.3 4 - 11 x10E9/L 03/12/2025 9:59 AM EDT [facility] RBC Count 4.13 3.8 - 5.2 X10E12/L 03/12/2025 9:59 AM EDT [facility] Hemoglobin 13.5 11.7 - 15.5 g/dL 03/12/2025 9:59 AM EDT [facility] Hematocrit 39.8 35 - 47 % 03/12/2025 9:59 AM EDT [facility] MCV 97 80 - 100 fL 03/12/2025 9:59 AM EDT [facility] MCH 32.7 27 - 34 pg 03/12/2025 9:59 AM EDT [facility] MCHC 33.8 32 - 36 g/dL 03/12/2025 9:59 AM EDT [facility] RDW 13.0 11.5 - 15 % 03/12/2025 9:59 AM EDT [facility] Platelet Count 376 150 - 450 X10E9/L 03/12/2025 9:59 AM EDT [facility] MPV 8.1 7 - 12 fL 03/12/2025 9:59 AM EDT [facility] Neutrophils % 67.8 % 03/12/2025 9:59 AM EDT [facility] Lymphocytes % 22.5 % 03/12/2025 9:59 AM EDT [facility] Monocytes % 7.0 % 03/12/2025 9:59 AM EDT [facility] Eosinophils % 2.1 % 03/12/2025 9:59 AM EDT [facility] Basophils % 0.6 % 03/12/2025 9:59 AM EDT [facility] Neutrophils Absolute (A) 7.0(H) 1.5 - 6.6 10*3/uL 03/12/2025 9:59 AM EDT [facility] Lymphocytes Absolute 2.3 1.0 - 3.5 10*3/uL 03/12/2025 9:59 AM EDT [facility] Monocytes Absolute 0.7 0.0 - 0.9 10*3/uL 03/12/2025 9:59 AM EDT [facility] Eosinophils Absolute 0.2 0.0 - 0.4 10*3/uL 03/12/2025 9:59 AM EDT [facility] Basophils Absolute 0.1 0.0 - 0.2 10*3/uL 03/12/2025 9:59 AM EDT [facility] Differential Type AUTOMATED DIFFERENTIAL 03/12/2025 9:59 AM EDT [facility] Blood Venous blood / Unknown 03/12/2025 9:35 AM EDT 03/12/2025 9:39 AM EDT us Marcial Redding MD LAB BLOOD ORDERABLES Final Resu lt [facility] [address] [place] [address], documented in this encounter Visit Diagnoses Diagnosis [...] 03/12/25 at 1030, For 1 dose 1038 ([employer]ev[employer] Bag - Prov ider: Noble Brewer)1120 (Stop [...] documented as of this encounter Care Teams Documentation Nurse Relationship Specialty Start Date End Date Emelia Rod APRN-COORDINATOR OF LIBRARY SERVICES [address] [place] [address] PCP - General Family Medicine 10/16/23 documented as of this encounter
--- OUTSIDE RECORDS SUMMARY | 2025-03-13 11:02 | XMS_ITS | Encounter Summary ---
Author Organization [facility] tem Address [id number] [address] [place] [address] Care Team Providers Care [employer] Teacher Name Role Phone Emelia Rod APRN-YARD TRUCK DRIVER Primary Care Provide r Reason for Visit * Reason Comments Vomiting Pt was here yesterda y for diverticulosis and cannabis hyperemesis Encounter Details Date Type Department Care Team (Late st Contact Info) Description 03/13/2025 11:02 AM EDT - 03/13/2025 1:35 PM EDT Emergency [facility] - Emergency [address] [place] [phone] Gerard Ca DO [address] [place], [place] [id number] Nausea and vomiting, unspecified vomiting type (Primary [...] Everywhere. * Nausea and Vomiting? Adult ED (Spanish) documented in this encounter Medications at Time [...] from the original note were not included. [facility] - EMERGENCY Pt Name: Bernie Meza [...] coffee. She reports spending [address] [facility] last year for similar reasons. Patient smoker marijuana and reports her cyclic vomiting began before beginning marijuana. 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 Past Medical History: Past Medical History: Diagnosis Date Anemia Anxiety Asthma Back pain Depression Eczema Endometriosis Hemorrhoids History of obesity Hypertension Patient states she has a history of low blood pressure not high Meningitis Migraine Rectal cancer ([facility]) Sacroiliac joint pain with Pressure Visual impairment Past Surgical History: Past Surgical History: Procedure Laterality Date COLONOSCOPY 2019 [place] COLONOSCOPY W/ BIOPSIES AND POLYPECTOMY x4 DENTAL [...] physical examination she appears to be in efiz-bl-mnnejldj distress. She is stating there is abdominal [...] Description 03/27/2025 10:00 AM EDT Office Visit [facility] [address] [place] [phone] Emelia Rod, KELLIE-YARD TRUCK DRIVER [address] [place] [address] documented as of this encounter Procedures Procedure [...] Tube Auto Resulted 03/13/2025 1:01 PM EDT [facility] Blood Venous blood / Unknown 03/13/2025 11:23 AM EDT 03/13/2025 11:28 AM EDT us Gerard Ca DO LAB BLOOD ORDERABLES Final Resul t [facility] [address] [place] [address], * Lipase (03/13/2025 11:23 AM EDT) LIPASE 26 17 - 40 U/L 03/13/2025 11:42 AM EDT [facility] Blood Venous blood / Unknown Venipuncture / Unknown 03/13/2025 11:23 AM EDT 03/13/2025 11:26 AM EDT us Gerard Ca DO LAB BLOOD ORDERABLES Final Resul t [facility] [address] [place] [address], [place] * (ABNORMAL) Comprehensive metabolic panel (03/13/2025 11:23 AM EDT) SODIUM 139 134 - 146 mmol/L 03/13/2025 11:45 AM EDT [facility] POTASSIUM 3.3(L) 3.5 - 5.0 mmol/L 03/13/2025 11:45 AM EDT [facility] CHLORIDE 109 98 - 109 mmol/L 03/13/2025 11:45 AM EDT [facility] CARBON DIOXIDE 19(L) 22 - 32 mmol/L 03/13/2025 11:45 AM EDT [facility] ANION GAP 11 5 - 15 mmol/L 03/13/2025 11:45 AM EDT [facility] BLOOD UREA NITROGEN 10 5 - 23 mg/dL 03/13/2025 11:45 AM EDT [facility] CREATININE 0.68 0.40 - 1.00 mg/dL 03/13/2025 11:45 AM EDT [facility] Comment:METHOD TRACEABLE TO IDMS STANDARD GLUCOSE 153(H) 65 - 99 mg/dL 03/13/2025 11:45 AM EDT [facility] CALCIUM 8.9 8.5 - 10.5 mg/dL 03/13/2025 11:45 AM EDT [facility] TOTAL PROTEIN 7.3 6.0 - 8.0 g/dL 03/13/2025 11:45 AM EDT [facility] ALBUMIN 4.4 3.2 - 5.3 g/dL 03/13/2025 11:45 AM EDT [facility] ALKALINE PHOSPHATASE 58 39 - 130 U/L 03/13/2025 11:45 AM EDT [facility] AST 59(H) <=41 U/L 03/13/2025 11:45 AM EDT [facility] ALT 64(H) <=31 U/L 03/13/2025 11:45 AM EDT [facility] BILIRUBIN,TOTAL 0.4 0.3 - 1.2 mg/dL 03/13/2025 11:45 AM EDT [facility] EGFR Non-Race Dependent >90 >=60 ml/min/1.7 3sq.m 03/13/2025 11:45 AM EDT [facility] Comment: eGFR not reported due to non-numeric value for Creatinine. Reported eGFR is based on the CKD-EPI 2020 equation that does not use a race coefficient. Blood Venous blood / Unknown Venipuncture / Unknown 03/13/2025 11:23 AM EDT 03/13/2025 11:26 AM EDT us Gerard Ca DO LAB BLOOD ORDERABLES Final Resul t [facility] [address] [place] [address], * (ABNORMAL) CBC auto differential (03/13/2025 11:23 AM EDT) WBC 13.7(H) 4 - 11 x10E9/L 03/13/2025 11:33 AM EDT [facility] RBC Count 3.98 3.8 - 5.2 X10E12/L 03/13/2025 11:33 AM EDT [facility] Hemoglobin 12.9 11.7 - 15.5 g/dL 03/13/2025 11:33 AM EDT [facility] Hematocrit 38.2 35 - 47 % 03/13/2025 11:33 AM EDT [facility] MCV 96 80 - 100 fL 03/13/2025 11:33 AM EDT [facility] MCH 32.5 27 - 34 pg 03/13/2025 11:33 AM EDT [facility] MCHC 33.8 32 - 36 g/dL 03/13/2025 11:33 AM EDT [facility] RDW 13.0 11.5 - 15 % 03/13/2025 11:33 AM EDT [facility] Platelet Count 322 150 - 450 X10E9/L 03/13/2025 11:33 AM EDT [facility] MPV 7.7 7 - 12 fL 03/13/2025 11:33 AM EDT [facility] Neutrophils % 79.1 % 03/13/2025 11:33 AM EDT [facility] Lymphocytes % 12.6 % 03/13/2025 11:33 AM EDT [facility] Monocytes % 7.9 % 03/13/2025 11:33 AM EDT [facility] Eosinophils % 0.1 % 03/13/2025 11:33 AM EDT [facility] Basophils % 0.3 % 03/13/2025 11:33 AM EDT [facility] Neutrophils Absolute (A) 10.8(H) 1.5 - 6.6 10*3/uL 03/13/2025 11:33 AM EDT [facility] Lymphocytes Absolute 1.7 1.0 - 3.5 10*3/uL 03/13/2025 11:33 AM EDT [facility] Monocytes Absolute 1.1(H) 0.0 - 0.9 10*3/uL 03/13/2025 11:33 AM EDT [facility] Eosinophils Absolute 0.0 0.0 - 0.4 10*3/uL 03/13/2025 11:33 AM EDT [facility] Basophils Absolute 0.0 0.0 - 0.2 10*3/uL 03/13/2025 11:33 AM EDT [facility] Differential Type AUTOMATED DIFFERENTIAL 03/13/2025 11:33 AM EDT [facility] Blood Venous blood / Unknown Venipuncture / Unknown 03/13/2025 11:23 AM EDT 03/13/2025 11:26 AM EDT us Gerard Ca DO LAB BLOOD ORDERABLES Final Resul t [facility] [address] [place] [address], [place] * ECG 12 lead (03/13/2025 11:16 AM EDT) 03/13/2025 11:1 6 AM EDT Narrative TRAC[facility]AST[facility]UE - 03/13/2025 11:57 AM EDT us Gerard Ca DO ECG ORDERABLES Final Result [facility] documented in this encounter Visit Diagnoses Diagnosis [...] 2 minutes. 1129 (Given - Provid er: [facility]) haloperidol lactate (HALDOL) injection 5 mg (COMPLETED) 5 mg, intravenous, Once, On Thu03/13/25 at 1115, For 1 dose, IV Haldol requires monitored bed 1130 (Given - Provid er: [facility]) ondansetron (PF) (ZOFRAN) injection 4 mg (COMPLETED) 4 mg, intravenous, Once, On Thu03/13/25 at 1210, For 1 dose, Intravenous administration preferred to be given over 2-5 minutes. 1245 (Given - [facility] sodium chloride 0.9 % bolus (COMPLETED) 1,000 [...] documented as of this encounter Care Teams [employer] Teacher Relationship Specialty Start Date End Date Emelia Rod APRN-CHRISTINA [address] [place] [address] PCP - General Family Medicine 10/16/23 documented as of this encounter
[2025-03-23] VITALS (7 sets, daily range): BP systolic 113–163; BP diastolic 62–104; PULSE 61–86; TEMP 36.6; O2SAT 98–99; BMI 23.8
--- OUTSIDE RECORDS SUMMARY | 2025-03-23 11:12 | XMS_ITS | Clinical Summary ---
Author Organization [employer] tem Address [id number] [address] [place] [address] Care Team Providers Care Returned Goods Sorter Name Role Phone ViolaEmelia KELLIE-FRUIT INSPECTOR Primary Care Provide r Allergies Active Allergy [...] for nausea or vomiting. 12 each 01/21/20 23 Active Additional Information Patient not taking.Reported [...] EDT - 03/13/2025 1:35 PM EDT Emergency [facility] - Emergency [address] [place] [address] Gerard Ca DO Nausea and vomiting, unspecified vomiting type (Primary Dx) Discharge Disposition: Home 03/12/2025 9:16 AM EDT - 03/12/2025 11:30 AM EDT Emergency [facility] - Emergency [address] [address] Marcial Redding MD Cyclical vomiting (Primary Dx) [...] 03/13/2025 11:04 AM EDT Plan of Treatment Upcoming Encounters Date Type Department Care Team (Late st Contact Info) Description 03/27/2025 10:00 AM EDT Office Visit [facility] [address] [place] [phone] Emelia Rod, KELLIE-FRUIT INSPECTOR [address] [place] [address] Health Maintenance Due Date Last Done Comments [...] Tube Auto Resulted 03/13/2025 1:01 PM EDT [facility] Blood Venous blood / Unknown 03/13/2025 11:23 AM EDT 03/13/2025 11:28 AM EDT us Gerard Ca DO LAB BLOOD ORDERABLES Final Resul t [facility] [address] [place] [address], * (ABNORMAL) CBC auto differential (03/13/2025 11:23 AM EDT) Only the most recent of2 resultswithin the time period is included. [facility] WBC 13.7(H) 4 - 11 x10E9/L 03/13/2025 11:33 AM EDT [facility] RBC Count 3.98 3.8 - 5.2 X10E12/L 03/13/2025 11:33 AM EDT [facility] Hemoglobin 12.9 11.7 - 15.5 g/dL 03/13/2025 11:33 AM EDT [facility] Hematocrit 38.2 35 - 47 % 03/13/2025 11:33 AM EDT [facility] MCV 96 80 - 100 fL 03/13/2025 11:33 AM EDT [facility] MCH 32.5 27 - 34 pg 03/13/2025 11:33 AM EDT [facility] MCHC 33.8 32 - 36 g/dL 03/13/2025 11:33 AM EDT [facility] RDW 13.0 11.5 - 15 % 03/13/2025 11:33 AM EDT [facility] Platelet Count 322 150 - 450 X10E9/L 03/13/2025 11:33 AM EDT [facility] MPV 7.7 7 - 12 fL 03/13/2025 11:33 AM EDT [facility] Neutrophils % 79.1 % 03/13/2025 11:33 AM EDT [facility] Lymphocytes % 12.6 % 03/13/2025 11:33 AM EDT [facility] Monocytes % 7.9 % 03/13/2025 11:33 AM EDT [facility] Eosinophils % 0.1 % 03/13/2025 11:33 AM EDT [facility] Basophils % 0.3 % 03/13/2025 11:33 AM EDT [facility] Neutrophils Absolute (A) 10.8(H) 1.5 - 6.6 10*3/uL 03/13/2025 11:33 AM EDT [facility] Lymphocytes Absolute 1.7 1.0 - 3.5 10*3/uL 03/13/2025 11:33 AM EDT [facility] Monocytes Absolute 1.1(H) 0.0 - 0.9 10*3/uL 03/13/2025 11:33 AM EDT [facility] Eosinophils Absolute 0.0 0.0 - 0.4 10*3/uL 03/13/2025 11:33 AM EDT [facility] Basophils Absolute 0.0 0.0 - 0.2 10*3/uL 03/13/2025 11:33 AM EDT [facility] Differential Type AUTOMATED DIFFERENTIAL 03/13/2025 11:33 AM EDT [facility] Blood Venous blood / Unknown Venipuncture / Unknown 03/13/2025 11:23 AM EDT 03/13/2025 11:26 AM EDT us Gerard Ca DO LAB BLOOD ORDERABLES Final Resul t [facility] [address] [place] [address], [place] * Lipase (03/13/2025 11:23 AM EDT) Only the most recent of2 resultswithin the time period is included. LIPASE 26 17 - 40 U/L 03/13/2025 11:42 AM EDT [facility] Blood Venous blood / Unknown Venipuncture / Unknown 03/13/2025 11:23 AM EDT 03/13/2025 11:26 AM EDT us Gerard Ca DO LAB BLOOD ORDERABLES Final Resul t [facility] [address] [place] [address], [place] * (ABNORMAL) Comprehensive metabolic panel (03/13/2025 11:23 AM EDT) Only the most recent of2 resultswithin the time period is included. SODIUM 139 134 - 146 mmol/L 03/13/2025 11:45 AM EDT [facility] POTASSIUM 3.3(L) 3.5 - 5.0 mmol/L 03/13/2025 11:45 AM EDT [facility] CHLORIDE 109 98 - 109 mmol/L 03/13/2025 11:45 AM EDT [facility] CARBON DIOXIDE 19(L) 22 - 32 mmol/L 03/13/2025 11:45 AM EDT [facility] ANION GAP 11 5 - 15 mmol/L 03/13/2025 11:45 AM EDT [facility] BLOOD UREA NITROGEN 10 5 - 23 mg/dL 03/13/2025 11:45 AM EDT [facility] CREATININE 0.68 0.40 - 1.00 mg/dL 03/13/2025 11:45 AM EDT [facility] Comment:METHOD TRACEABLE TO IDMS STANDARD GLUCOSE 153(H) 65 - 99 mg/dL 03/13/2025 11:45 AM EDT [facility] CALCIUM 8.9 8.5 - 10.5 mg/dL 03/13/2025 11:45 AM EDT [facility] TOTAL PROTEIN 7.3 6.0 - 8.0 g/dL 03/13/2025 11:45 AM EDT [facility] ALBUMIN 4.4 3.2 - 5.3 g/dL 03/13/2025 11:45 AM EDT [facility] ALKALINE PHOSPHATASE 58 39 - 130 U/L 03/13/2025 11:45 AM EDT [facility] AST 59(H) <=41 U/L 03/13/2025 11:45 AM EDT [facility] ALT 64(H) <=31 U/L 03/13/2025 11:45 AM EDT [facility] BILIRUBIN,TOTAL 0.4 0.3 - 1.2 mg/dL 03/13/2025 11:45 AM EDT [facility] EGFR Non-Race Dependent >90 >=60 ml/min/1.7 3sq.m 03/13/2025 11:45 AM EDT [facility] Comment: eGFR not reported due to non-numeric value for Creatinine. Reported eGFR is based on the CKD-EPI 2020 equation that does not use a race coefficient. Blood Venous blood / Unknown Venipuncture / Unknown 03/13/2025 11:23 AM EDT 03/13/2025 11:26 AM EDT us Gerard Ca DO LAB BLOOD ORDERABLES Final Resul t [facility] [address] [facility] [place] [address], [place] * ECG 12 lead (03/13/2025 11:16 AM EDT) 03/13/2025 11:1 6 AM EDT Narrative [facility] - 03/13/2025 11:57 AM EDT us Gerard Ca DO ECG ORDERABLES Final Result [facility] * Light Blue Top (03/12/2025 9:36 AM EDT) Extra Tube Auto Resulted 03/12/2025 11:01 AM EDT [facility] Blood Venous blood / Unknown 03/12/2025 9:36 AM EDT 03/12/2025 9:39 AM EDT Marcial Redding MD LAB BLOOD ORDERABLES Final Resu lt Performing Organization Address City/[facility] Co de Phone Number [facility] [address] [place] [address], * Ethanol (03/12/2025 9:35 AM EDT) ETHANOL <0.010 <=0.080 g/dL 03/12/2025 10:06 AM EDT [facility] Comment: This report is intended for use in clinical monitoring or management of patients. Blood Venous blood / Unknown 03/12/2025 9:35 AM EDT 03/12/2025 9:39 AM EDT Marcial Redding MD LAB BLOOD ORDERABLES Final Resu lt Performing Organization Address City/[facility] Co de Phone Number [facility] [address] [place] [address], from Last 3 Months Insurance MEDICAID [place] Care Teams Returned Goods Sorter Relationship Specialty Start Date End Date Emelia Rod APRN-FRUIT INSPECTOR [address] [place] [address] PCP - General Family Medicine 10/16/23
--- OUTSIDE RECORDS SUMMARY | 2025-03-23 11:12 | XMS_ITS | Encounter Summary ---
Author Organization [facility] tem Address [id number] [address] [place] [address] Care Team Providers Care Director Data Architecture Name Role Phone Emelia Rod OPHTHALMIC TECH-HEAVY TRUCK TECHNICIAN Primary Care Provide r Encounter Details Date Type Department Care Team (Late st Contact Info) Description 10/23/2020 Orders Only [facility] [address] [place] [phone] Emelia Rod APRN-HEAVY TRUCK TECHNICIAN [address] [place], [place] [phone] Social History Tobacco Use Types Packs/Day Years [...] as of this encounter Plan of Treatment Upcoming Encounters Date Type Department Care Team (Late st Contact Info) Description 03/27/2025 10:00 AM EDT Office Visit [facility] [address] [place] [phone] Emelia Rod APRN-CNP [address] [place] [address] documented as of this encounter Visit Diagnoses Not on filedocumented in this encounter Additional Health Concerns Infection Onset Date Last Indicated Resolved Time COVID-19 Rule-Out 06/12/2023 06/12/2023 06/12/2023 7:27 PM EDT Assessment Noted Time PHQ-9 Depression Total Score: 0 10/24/19 21 2:00 PM EDT documented as of this encounter Care Teams Director Data Architecture Relationship Specialty Start Date End Date Emelia Rod APRN-CNP [address] [place] [address] PCP - General Family Medicine 10/16/23 documented as of this encounter
--- OUTSIDE RECORDS SUMMARY | 2025-03-23 11:12 | XMS_ITS | Encounter Summary ---
Author Organization [employer] [facility] tem Address [place]-[id number] [address] [place] [address] Care Team Providers Care Camp Maintenance Supervisor Name Role Phone Emelia Rod CEMENT SPRAYER HELPER-CONFERENCE ORGANIZER Primary Care Provide r Reason for Visit * Reason Comments Med Refill Encounter Details Date Type Department Care Team (Late st Contact Info) Description 08/18/2022 Refill [facility] [address] [place] [address] Emelia Rod APRN-CONFERENCE ORGANIZER [address] [place] [address] Social History Tobacco Use Types Packs/Day Years [...] Office Visit [facility] [address] [facility] [place] [address] Emelia Rod APRN-CNP [address] [place], [place] [phone] documented as of this encounter Visit Diagnoses Not on filedocumented in this encounter Additional Health Concerns Infection Onset Date Last Indicated Resolved Time COVID-19 Rule-Out 06/12/2023 06/12/2023 06/12/2023 7:27 PM EDT Assessment Noted Time PHQ-9 Depression Total Score: 0 03/18/20 21 3:00 PM EDT documented as of this encounter Care Teams Camp Maintenance Supervisor Relationship Specialty Start Date End Date Emelia Rod APRN-CNP [address] [place], [place] [phone] PCP - General Family Medicine 10/16/23 documented as of this encounter
--- OUTSIDE RECORDS SUMMARY | 2025-03-23 11:12 | XMS_ITS | Encounter Summary ---
Author Organization [facility] [employer] tem Address [id number] [address] [place] [address] Care Team Providers Care Health And Fitness Professor Name Role Phone Emelia Rod GRADER MEAT-HEMODIALYSIS TECHNICIAN Primary Care Provide r Reason for Visit * Reason Comments Med Refill Encounter Details Date Type Department Care Team (Late st Contact Info) Description 07/23/2022 Refill [facility] [address] [place] [phone] Emelia Rod APRN-CNP [address] [place], [place] [phone] Social History Tobacco Use Types Packs/Day Years [...] Office Visit [facility] [address] [place] [address] Emelia Rod APRN-CNP [address] [place] [address] documented as of this encounter Visit Diagnoses Not on filedocumented in this encounter Additional Health Concerns Infection Onset Date Last Indicated Resolved Time COVID-19 Rule-Out 06/12/2023 06/12/2023 06/12/2023 7:27 PM EDT Assessment Noted Time PHQ-9 Depression Total Score: 0 03/18/20 21 3:00 PM EDT documented as of this encounter Care Teams Health And Fitness Professor Relationship Specialty Start Date End Date Emelia Rod APRN-CNP [address] [facility] [place] [address] PCP - General Family Medicine 10/16/23 documented as of this encounter
--- OUTSIDE RECORDS SUMMARY | 2025-03-23 11:12 | XMS_ITS | Clinical Summary ---
Author Organization [facility] Address [address] [place] [address] Care Team Providers Care Switch Engineer Name Role Phone Emelia Rod CNP Primary Care Provider [phone] Kel Wood DO, David L Unavailable [phone] Chaz Wright Unavailable Allergies Active Allergy Reactions [...] is lower risk 8 03/05/2023 Data from: https://www.neighborhoodatlas.medicine.[facility].edu/. Last address used for calculation [address] [...] - PCV) 2002 Cervical Cancer Screening 2004 HPV Vaccine (1 - 3-dose SCDM series) 2010 Mammogram Screening 2023 DTaP,Tdap,Td Vaccine (2 - Td or Tdap) 06/01/2024 Influenza Vaccine (#1) 2025 Insurance [place] Care Teams Switch Engineer Relationship Specialty Start Date End Date Emelia Rod CNP PCP - General Family Medicine 05/16/19 Kenji Begum Jr., DO [address] [address] Gastroenterology 05/16/19 Chaz Wright [address] [place] [address] Obstetrics 02/17/19
--- OUTSIDE RECORDS SUMMARY | 2025-03-23 11:12 | XMS_ITS | Encounter Summary ---
Author Organization [employer] [facility] tem Address [facility] [id number] [address] [place] [address] Care Team Providers Care Zoo Director Name Role Phone Emelia Rod APRN-CHRISTINA Primary Care Provide r Reason for Visit * Reason Onset Date Comments Med Refill 01/21/2023 Encounter Details Date Type Department Care Team (Late st Contact Info) Description 01/21/2023 Refill [facility] [address] [place] [phone] Susana Solomon LPN Social History Tobacco Use [...] Office Visit [facility] [address] [place] [phone] Emelia Rod APRN-CNP [address] [place] [address] documented as of this encounter Visit Diagnoses Not on filedocumented in this encounter Additional Health Concerns Infection Onset Date Last Indicated Resolved Time COVID-19 Rule-Out 06/12/2023 06/12/2023 06/12/2023 7:27 PM EDT Assessment Noted Time PHQ-9 Depression Total Score: 0 01/21/20 23 7:00 AM EDT documented as of this encounter Care Teams Zoo Director Relationship Specialty Start Date End Date Emelia Rod APRN-CNP [address] [place] [address] PCP - General Family Medicine 10/16/23 documented as of this encounter
--- OUTSIDE RECORDS SUMMARY | 2025-03-23 11:12 | XMS_ITS | Encounter Summary ---
Author Organization [facility] tem Address [id number] [address] [place] [address] Care Team Providers Care X Ray Equipment Tester Name Role Phone Emelia Rod CONVENTIONS ASSISTANT-MARKETING OPERATIONS ANALYST Primary Care Provide r Encounter Details Date [...] Description 03/27/2025 10:00 AM EDT Office Visit [facility] [address] [place] [phone] Emelia Rod APRN-CNP [address] [place], [place] [phone] documented as of this encounter Visit Diagnoses Not on filedocumented in this encounter Additional Health Concerns Assessment Noted Time PHQ-9 Depression Total Score: 0 01/21/20 23 7:00 AM EDT documented as of this encounter Care Teams X Ray Equipment Tester Relationship Specialty Start Date End Date Emelia Rod APRN-CNP [address] [place] [address] PCP - General Family Medicine 10/16/23 documented as of this encounter
--- OUTSIDE RECORDS SUMMARY | 2025-03-23 11:12 | XMS_ITS | Encounter Summary ---
Author Organization [facility] [employer] [facility] tem Address [facility] [place][id number] [address] [place] [address] Care Team Providers Care Delivery Clerk Name Role Phone Emelia Rod METAL BASE BLOCKER-MANAGER CALL CENTER Primary Care Provide r Encounter Details Date Type Department Care Team (Late st Contact Info) Description 11/28/2020 Orders Only [facility] [address] [place] [phone] Bipin Cox CNA Chronic midline low back [...] Encounters Date Type Department Care Team (Late Contact Info) Description 03/27/2025 10:00 AM EDT Office Visit [facility] [address] [facility] [place] [phone] Emelia Rod APRN-CNP [address] [place] [address] documented as of this encounter Procedures Procedure Name Priority Date/Time Associated Diagnosis Comments AMB REFERRAL TO PHYSICAL THERAPY Routine 11/16/2020 Chronic midline low back pain with left-sided sciatica documented in this encounter Results * [facility] [place], [place] (11/16/2020) 11/16/2020 us Emelia GABRIEL OUTPATIENT REFERRAL O RDERABLES Final Result MANUALLY [...] documented as of this encounter Care Teams Delivery Clerk Relationship Specialty Start Date End Date Emelia Rod APRN-CNP [address] [place] [address] PCP - General Family Medicine 10/16/23 documented as of this encounter
--- OUTSIDE RECORDS SUMMARY | 2025-03-23 11:12 | XMS_ITS | Encounter Summary ---
Author Organization [facility] [employer] [facility] tem Address [id number] [address] [place] [address] Care Team Providers Care Cupola Tapper Helper Name Role Phone Emelia Rod CREDIT UNION FIELD EXAMINER-SCANNER SUPERVISOR Primary Care Provide r Encounter Details Date Type Department Care Team (Late st Contact Info) Description 11/23/2020 Telephone [facility] [address] [place] [phone] Emelia Rod APRN-SCANNER SUPERVISOR [address] [place], [place] [phone] Social History Tobacco Use Types Packs/Day Years [...] Miscellaneous Notes * Telephone Encounter - Ratna Taylor - 11/23/2020 3:03 PM EDT FYI: [facility] they are going to be changing course with this patient and adding a pelvic health component to her treatment. There is no additional order needed. documented in this encounter Plan of Treatment Upcoming Encounters Date Type Department Care Team (Late st Contact Info) Description 03/27/2025 10:00 AM EDT Office Visit [facility] [address] [place] [phone] Emelia Rod APRN-CNP [address] [place] [address] documented as of this encounter Visit Diagnoses Not on filedocumented in this encounter Additional Health Concerns Infection Onset Date Last Indicated Resolved Time COVID-19 Rule-Out 06/12/2023 06/12/2023 06/12/2023 7:27 PM EDT Assessment Noted Time PHQ-9 Depression Total Score: 0 10/24/19 21 2:00 PM EDT documented as of this encounter Care Teams Cupola Tapper Helper Relationship Specialty Start Date End Date Emelia Rod APRN-CNP [address] [facility] [place], [place] [phone] PCP - General Family Medicine 10/16/23 documented as of this encounter
--- OUTSIDE RECORDS SUMMARY | 2025-03-23 11:12 | XMS_ITS | Encounter Summary ---
Author Organization [facility] [employer] [facility] tem Address [id number] [address] [place] [address] Care Team Providers Care Buffing Machine Operator Name Role Phone JigneshstevenkayEmelia christianson IT ADMINISTRATIVE ASSISTANT-DOORSHAKER Primary Care Provide r Encounter Details Date Type Department Care Team (Late st Contact Info) Description 02/04/2021 [facility] [address] [place] [phone] Bipin Cox CNA Social History Tobacco Use [...] Visit [facility] [address] [place] [phone] Emelia Rod APRN-CNP [address] [place] [address] documented as of this encounter Visit Diagnoses Not on filedocumented in this encounter Additional Health Concerns Infection Onset Date Last Indicated Resolved Time COVID-19 Rule-Out 06/12/2023 06/12/2023 06/12/2023 7:27 PM EDT Assessment Noted Time PHQ-9 Depression Total Score: 0 11/29/19 21 1:00 PM EDT documented as of this encounter Care Teams Buffing Machine Operator Relationship Specialty Start Date End Date Emelia Rod APRN-CNP [address], [place] [phone] PCP - General Family Medicine 10/16/23 documented as of this encounter
--- OUTSIDE RECORDS SUMMARY | 2025-03-23 11:13 | XMS_ITS | Encounter Summary ---
Author Organization [facility] tem Address [facility] [id number] [address] [place] [address] Care Team Providers Care Food And Beverage Cashier Name Role Phone Emelia Rod CUSTOMER ADVISOR-HOUSE MANAGER Primary Care Provide r Encounter Details Date Type Department Care Team (Late st Contact Info) Description 11/30/2020 Orders Only [facility] [address] [place] [phone] Emelia Rod APRN-HOUSE MANAGER [address] [place], [place] [phone] Social History Tobacco Use Types Packs/Day Years [...] Office Visit [facility] [address] [phone] Emelia Rod APRN-CNP [address] [place] [address] documented as of this encounter Visit Diagnoses Not on filedocumented in this encounter Additional Health Concerns Infection Onset Date Last Indicated Resolved Time COVID-19 Rule-Out 06/12/2023 06/12/2023 06/12/2023 7:27 PM EDT Assessment Noted Time PHQ-9 Depression Total Score: 0 11/29/19 21 1:00 PM EDT documented as of this encounter Care Teams Food And Beverage Cashier Relationship Specialty Start Date End Date Emelia Rod APRN-CNP [address] [place] [address] PCP - General Family Medicine 10/16/23 documented as of this encounter
--- OUTSIDE RECORDS SUMMARY | 2025-03-23 11:13 | XMS_ITS | Encounter Summary ---
Author Organization [employer] [facility] tem Address [id number] [address] [place] [address] Care Team Providers Care Acute Care Certified Nursing Assistant Name Role Phone Emelia Rod APRN-OVERSIZE LOAD PILOT ESCORT Primary Care Provide r Encounter Details Date Type Department Care Team (Late st Contact Info) Description 01/03/2022 Orders Only [facility] [address] [place] [phone] External, Scanning Provider Social History Tobacco Use [...] Office Visit [facility] [address] [place] [phone] Emelia Rod APRN-OVERSIZE LOAD PILOT ESCORT [address] [place], [place] [phone] documented as of this encounter Procedures Procedure [...] documented as of this encounter Care Teams Acute Care Certified Nursing Assistant Relationship Specialty Start Date End Date Emelia Rod APRN-OVERSIZE LOAD PILOT ESCORT [address] [place] [address] PCP - General Family Medicine 10/16/23 documented as of this encounter
--- OUTSIDE RECORDS SUMMARY | 2025-03-23 11:13 | XMS_ITS | Encounter Summary ---
Author Organization [facility] [employer] [facility] tem Address [facility][id number] [address] [place] [address] Care Team Providers Care Rn Ortho Name Role Phone Emelia Rod Primary Care Provide r Reason for Visit * Reason Comments Med Refill Encounter Details Date Type Department Care Team (Late st Contact Info) Description 01/27/2019 Refill [facility] [address] [place] [phone] Emelia Rod APRN-CNP [address] [place], [place] [phone] Social History Tobacco Use Types Packs/Day Years [...] Office Visit [facility] [address] [place] [address] Emelia Rod APRN-CNP [address] [place] [address] documented as of this encounter Visit Diagnoses Not on filedocumented in this encounter Additional Health Concerns Infection Onset Date Last Indicated Resolved Time COVID-19 Rule-Out 06/12/2023 06/12/2023 06/12/2023 7:27 PM EDT Assessment Noted Time PHQ-9 Depression Total Score: 19 12/22/ 019 8:00 AM EDT documented as of this encounter Care Teams Rn Ortho Relationship Specialty Start Date End Date Emelia Rod APRN-CNP [address] [place] [address] PCP - General Family Medicine 10/16/23 documented as of this encounter
--- OUTSIDE RECORDS SUMMARY | 2025-03-23 11:13 | XMS_ITS | Clinical Summary ---
Author Organization [facility] Address [address] [place] [address] Care Team Providers Care Director Of Procurement Name Role Phone Shabbir Michelle MD Unavailable [...] 2023 Influenza Vaccine (#1) 2025 Care Teams Director Of Procurement Relationship Specialty Start Date End Date Shabbir Michelle MD [address] [facility] [address] [place] [address] PCP - [facility] STAFF SCIENTIST 11/09/23
--- OUTSIDE RECORDS SUMMARY | 2025-03-23 11:13 | XMS_ITS | Encounter Summary ---
Author Organization [facility] tem Address [id number] [address] [place] [address] Care Team Providers Care Office Services Coordinator Name Role Phone Emelia Rod [employer]AD Primary Care Provide r Reason for Visit * Reason Comments Med Refill Encounter Details Date Type Department Care Team (Late st Contact Info) Description 02/03/2019 Refill [facility] [address] [place] [phone] Emelia Rod APRN-CNP [address] [place], [place] [phone] Social History Tobacco Use Types Packs/Day Years [...] Office Visit [facility] [address] [place] [address] Emelia Rod APRN-CHRISTINA [address] [place] [address] documented as of this encounter Visit Diagnoses Not on filedocumented in this encounter Additional Health Concerns Infection Onset Date Last Indicated Resolved Time COVID-19 Rule-Out 06/12/2023 06/12/2023 06/12/2023 7:27 PM EDT Assessment Noted Time PHQ-9 Depression Total Score: 19 019 8:00 AM EDT documented as of this encounter Care Teams Office Services Coordinator Relationship Specialty Start Date End Date Emelia Rod APRN-CNP [address] [place] [address] PCP - General Family Medicine 10/16/23 documented as of this encounter
--- OUTSIDE RECORDS SUMMARY | 2025-03-23 11:13 | XMS_ITS | Encounter Summary ---
Author Organization [facility] tem Address [id number] [address] [place] [address] Care Team Providers Care Cost Control Specialist Name Role Phone Emelia Rod Primary Care Provide r Reason for Visit * Reason Comments Med Refill Encounter Details Date Type Department Care Team (Late st Contact Info) Description 03/28/2023 Refill [facility] [address] [place] [phone] Emelia Rod APRN-CNP [address] [place], [place] [phone] Social History Tobacco Use Types Packs/Day Years [...] EDT Office Visit [facility] [address] [place] [phone] Emelia Rod APRN-CNP [address] [place] [address] documented as of this encounter Visit Diagnoses Not on filedocumented in this encounter Additional Health Concerns Infection Onset Date Last Indicated Resolved Time COVID-19 Rule-Out 06/12/2023 06/12/2023 06/12/2023 7:27 PM EDT Assessment Noted Time PHQ-9 Depression Total Score: 0 01/21/20 23 7:00 AM EDT documented as of this encounter Care Teams Cost Control Specialist Relationship Specialty Start Date End Date Emelia Rod APRN-CNP [address] [place], [place] [phone] PCP - General Family Medicine 10/16/23 documented as of this encounter
--- NOTE | 2025-03-23 11:32 | PC.NURSE ---
sig other at bedside - states she's got a history of cyclic vomiting. started vomiting this morning while rolling a joint and some abd cramping.
--- NOTE | 2025-03-23 11:37 | ECG_ITS ---
[facility] Test Date: 2025-03-23 Pat Name: PALMER BUCIO Department: Room: - Gender: Female Chief Port Director: : [id number] Requested By: [id number] Order Number: [id number] Reading MD: BLUE MORFIN M.D. Measurements Intervals [place] Rate: 70 P: 90 DC: 134 QRS: 122 QRSD: 68 T: 80 QT: 398 QTc: 418 Interpretive Statements 1100 Sinus rhythm 1102 Sinus arrhythmia 2420 RSR (QR) in lead V1/V2, consistent with right ventricular conduction delay 2730 Left posterior fascicular block 3113 Cannot rule out anterior myocardial infarction, probably old 8102 Low QRS voltage in chest leads 9150 abnormal ECG No prior ECG available for comparison Electronically Signed On 03-23-2025 19:33:34 EDT by BLUE MORFIN M.D.
[2025-03-23 11:44] LABS: Hematocrit 43.6 % (36.0-48.0); Hemoglobin 14.9 g/dL (12.0-16.0); Immature Granulocytes Abs Auto 0.05 10^3/uL (0.00-0.03); Immature Granulocytes Pct Auto 0.4 % (0.0-0.5); Lymphocytes Absolute Auto 1.4 10^3/uL (1.2-3.8); Mean Corpuscular HGB Conc 34.2 g/dL (29.9-35.2); Mean Corpuscular Hemoglobin 33.4 pg (26.7-34.0); Mean Corpuscular Volume 97.8 fL (81.0-99.0); Platelet Count 377 10^3/uL (150-450); Red Blood Count 4.46 10^6/uL (4.20-5.40); White Blood Count 13.9 10^3/uL (4.0-11.0)
[2025-03-23] MEDS: METOCLOPRAMIDE HCL 10 MG/2 ML VIAL IVP (11:44)
[2025-03-23] MEDS: 0.9 % SODIUM CHLORIDE 1,000 ML 1000 ML IV (11:44)
[2025-03-23 11:56] LABS: Anion Gap 10.1; Blood Urea Nitrogen 8.0 mg/dL (7.0-18.0); Calcium 9.3 mg/dL (8.5-10.1); Carbon Dioxide 26.0 mmol/L (21.0-32.0); Chloride 103 mmol/L (98-107); Estimated GFR (African America >60 (>=60 mL/min/1.73m^2); Estimated GFR (Non-African Ame >60 (>=60 mL/min/1.73m^2); Glucose 139 mg/dL (74-106); Potassium 4.1 mmol/L (3.5-5.1); Sodium 135 mmol/L (136-145)
--- NOTE | 2025-03-23 12:16 | ED.GENADUL1 ---
HPI HPI - General Adult General Chief complaint: Nausea/Vomiting/Diarrhea Stated complaint: ABDOMINAL PAIN Time Seen by Provider: 03/23/25 11:20 Source: patient and family Mode of arrival: Wheelchair Limitations: no limitations History of Present Illness HPI narrative: 39-year-old female presented to the emergency department for nausea and vomiting. This time it began today but she has been having trouble for about 2 weeks. She has been to several emergency departments in the past 2 weeks. She states she has not smoking marijuana in 2 weeks. No hematemesis or fever. She has had some diarrhea. Related Data Previous Rx's ?Medication ?Instructions ?Recorded ciprofloxacin HCl 500 mg tablet 500 mg PO BID #14 tabs 03/16/25 (Cipro) dicyclomine 10 mg capsule 10 mg PO BID #10 caps 03/16/25 metronidazole 500 mg tablet 500 mg PO BID #14 tabs 03/16/25 furosemide 20 mg tablet (Lasix) 20 mg PO DAILY 3 days #3 tabs 03/19/25 potassium bicarbonate-citric acid 25 meq PO DAILY 3 doses #3 ea 03/19/25 25 mEq effervescent tablet ondansetron 4 mg disintegrating 4 mg PO Q6H PRN nausea and 03/23/25 tablet vomiting #20 tabs Allergies Allergy/AdvReac Type Severity Reaction Status Date / Time amoxicillin (From Augmentin) Allergy Severe Swelling Verified 03/19/25 16:24 of Lip/Tongue/Throat clavulanic acid (From Allergy Severe Swelling Verified 03/19/25 16:24 Augmentin) of Lip/Tongue/Throat sulfamethoxazole (From Allergy Severe Rash Verified 03/19/25 16:24 Bactrim) trimethoprim (From Bactrim) Allergy Severe Rash Verified 03/19/25 16:24 Opioid HPI Opioid Management Most Recent Opioid Data: Last Pain Scale 4 03/19/25, 16:25 Ur Phencyclidine Scrn, (NEGATIVE) Negative 03/16/25, 20:12 Review of Systems ROS Narrative A ten point review of systems is negative except as noted above. PFSH PFS Medical History (Updated 03/23/25 @ 13:23 by Ty Arenas MD) Cyclic vomiting syndrome ?R11.15 - Cyclical vomiting syndrome unrelated to migraine (ICD-10) Diverticulitis ?K57.92 - Diverticulitis of intestine, part unspecified, without perforation or abscess without bleeding (ICD-10) Social History Little interest or pleasure in doing things: not at all Feeling down, depressed, or hopeless: not at all Exam Narrative Exam Narrative: Nurses note and vital signs reviewed and patient is not hypoxic. General: The patient is vomiting into a receptacle. Skin: Warm, dry, no pallor noted. There is no rash noted. Head: Normocephalic, atraumatic Eye: Normal conjunctiva, no drainage Ears, Nose, Mouth, and Throat: oral mucosa is moist. Nares patent. Cardiovascular: Regular Rate and Rhythm Respiratory: Patient is in no distress, no accessory muscle use, lungs are clear to auscultation, no wheezing, rales or rhonchi Back: non-tender GI: Soft and nontender Musculoskeletal: The patient has no evidence of calf tenderness, no pitting edema, symmetrical pulses noted bilaterally Neurological: A&O, normal speech Psychiatric: Cooperative Constitutional Vital Signs, click to edit/add: Last Vital Signs Temp 98 F 03/23/25 11:56 Pulse 72 03/23/25 12:31 Resp 12 03/23/25 12:31 BP 113/62 03/23/25 12:31 Pulse Ox 99 03/23/25 12:31 O2 Del Method Room Air 03/23/25 11:11 Course Vital Signs Vital signs: Vital Signs Pulse Rate 77 03/23/25 11:11 Respiratory Rate 22 H 03/23/25 11:11 Blood Pressure 163/104 H 03/23/25 11:11 Pulse Oximetry 98 03/23/25 11:11 Oxygen Delivery Method Room Air 03/23/25 11:11 Temperature 98 F 03/23/25 11:56 Pulse Rate 72 03/23/25 12:31 Respiratory Rate 12 03/23/25 12:31 Blood Pressure 113/62 03/23/25 12:31 Pulse Oximetry 99 03/23/25 12:31 Oxygen Delivery Method Room Air 03/23/25 11:11 Medical Decision Making MDM Narrative Medical decision making narrative: The patient was given IV fluids and IV Zofran and feels much improved and is able to be discharged home. Blood work is nonspecific. Treatment diagnosis and follow-up were discussed with the patient. Lab Data Lab results reviewed: Yes I reviewed the patient's lab results Labs: Lab Results 03/23/25 Range/Units 11:27 WBC 13.9 H (4.0-11.0) 10^3/uL RBC 4.46 (4.20-5.40) 10^6/uL Hgb 14.9 (12.0-16.0) g/dL Hct 43.6 (36.0-48.0) % MCV 97.8 (81.0-99.0) fL MCH 33.4 (26.7-34.0) pg MCHC 34.2 (29.9-35.2) g/dL RDW 12.6 (11.0-15.0) % Plt Count 377 (150-450) 10^3/uL MPV 9.9 (9.5-13.5) fL Neut % (Auto) 85.7 H (43.0-75.0) % Lymph % (Auto) 9.8 L (20.5-60.0) % Coffee % (Auto) 3.6 (1.7-12.0) % Eos % (Auto) 0.2 L (0.9-7.0) % Baso % (Auto) 0.3 (0.2-2.0) % Neut # (Auto) 11.9 H (1.4-6.5) 10^3/uL Lymph # (Auto) 1.4 (1.2-3.8) 10^3/uL Coffee # (Auto) 0.5 (0.3-0.8) 10^3/uL Eos # (Auto) 0.0 (0.0-0.7) 10^3/uL Baso # (Auto) 0.0 (0.0-0.1) 10^3/uL Abs Immat Gran (auto) 0.05 H (0.00-0.03) 10^3/uL Imm/Tot Granulo (auto) 0.4 (0.0-0.5) % Sodium 135 L (136-145) mmol/L Potassium 4.1 (3.5-5.1) mmol/L Chloride 103 (98-107) mmol/L Carbon Dioxide 26.0 (21.0-32.0) mmol/L Anion Gap 10.1 BUN 8.0 (7.0-18.0) mg/dL Creatinine 0.62 (0.55-1.02) mg/dL Est GFR ( Amer) >60 (>=60 mL/min/1.73m^2) Est GFR (Non-Af Amer) >60 (>=60 mL/min/1.73m^2) BUN/Creatinine Ratio 12.9 Glucose 139 H (74-106) mg/dL Calcium 9.3 (8.5-10.1) mg/dL Discharge Plan Discharge Chief Complaint: Nausea/Vomiting/Diarrhea Clinical Impression: Cyclic vomiting syndrome Patient Disposition: Home, Self-Care Time of Disposition Decision: 13:23 Condition: Good Mode of Transportation: Private Vehicle Prescriptions / Home Meds: New ondansetron 4 mg tablet,disintegrating 4 mg PO Q6H PRN (Reason: nausea and vomiting) Qty: 20 0RF No Action ciprofloxacin HCl [Cipro] 500 mg tablet 500 mg PO BID Qty: 14 0RF dicyclomine 10 mg capsule 10 mg PO BID Qty: 10 0RF metronidazole 500 mg tablet 500 mg PO BID Qty: 14 0RF furosemide [Lasix] 20 mg tablet 20 mg PO DAILY 3 Days Qty: 3 0RF potassium bicarb-citric acid 25 mEq tablet, effervescent 25 meq PO DAILY Qty: 3 0RF Print Language: Indonesian Instructions: Cyclic Vomiting Syndrome (ED) Referrals: Emelia Rod NP [Primary Care Provider] - 1 week
== END 2025-03-23 13:52 | disposition home or self-care (01) ==
PROVIDERS: Emergency Provider Emergency Medicine; PCP Nurse Practitioner Family
DX: R11.15 Cyclical vomiting syndrome unrelated to migraine (principal); R11.2 Nausea with vomiting, unspecified
CPT/HCPCS: 36415; 80048; 80307; 81001; 85025; 93005; 96361; 96374; 96375; 99284; J2405; J2765